=== PATIENT | male | born 1945 | race Caucasian/White ===

== ENCOUNTER 2017-10-05 14:41 | Inpatient (IN) | payer MEDICARE, OTHER ==
[2017-10-05 15:36] LABS: Hematocrit 38.5 % (42.0-52.0); Hemoglobin 12.9 gm/dL (13.5-18.0); Mean Cell Volume 88.5 fl (78-100); Mean Corpuscular Hemoglobin 29.7 pg (27-31); Mean Corpuscular Hgb Conc 33.5 g/dl (32-36); Mean Platelet Volume 11.8 fl (6.0-9.5); Neutrophil # 2.4 K/mm3 (1.3-6.0); Neutrophil % 50.2 % (42-75.0); Platelet Count 148 K/mm3 (150-450); Red Blood Count 4.35 M/mm3 (4.7-6.0); Red Cell Distribution Width 14.6 % (11.5-14.0); White Blood Count 4.8 K/mm3 (4.0-10.5)
[2017-10-05] MEDS ORDERED: AZITHROMYCIN 250 MG TABLET PO STA (15:42)
[2017-10-05] MEDS ORDERED: METHYLPREDNISOLONE SOD SUCC/PF 40 MG/ML VIAL IV ONE (15:56)
[2017-10-05 16:01] LABS: Albumin * 3.1 gm/dl (3.4-5.0); Anion Gap 9.6 mmol/L (6.8-13.8); BUN/Creatinine Ratio 19.7 (9.0-21.6); Bilirubin, Total 0.3 mg/dL (0.0-1.1); Ca. Corrected For Albumin 8.6 mg/dL (8.4-10.2); Calcium * 8.2 mg/dL (7.9-10.9); Carbon Dioxide 31.5 mmol/L (24-32.6); Potassium 3.1 mmol/L (3.4-4.6); Total Protein 6.7 gm/dL (6.2-8.2)
[2017-10-05] MEDS ORDERED: METHYLPREDNISOLONE SOD SUCC 80 MG in WATER FOR INJ.,BACTERIOSTATIC 0 ML IV ONE (16:15)
[2017-10-05] MEDS: ENOXAPARIN SODIUM 40 MG/0.4 ML SYRG SC SCH (16:18)
[2017-10-05] MEDS: cefTRIAXone SODIUM 1,000 MG in DEXTROSE 5 % IN WATER 50 ML IV SCH ×2 (16:19)
[2017-10-05] MEDS: NORMAL SALINE 1,000 ML IV PRN (16:24)
[2017-10-05] MEDS: INSULIN REGULAR, HUMAN 100 UNITS/ML VIAL SC SCH (16:38)
[2017-10-05] MEDS: ACETAMINOPHEN 325 MG TABLET PO PRN (17:15)
[2017-10-05] MEDS: ALBUTEROL SULFATE/IPRATROPIUM 3 ML NEBU IH SCH ×2 (17:53→18:04)
[2017-10-05] MEDS: GABAPENTIN 600 MG TABLET PO SCH (23:19)
--- NOTE | 2017-10-05 23:54 | PN ---
Progess Note - Interim Narrative: 10/05/17 23:54 See H/P from Christine Perez from clinic today. I saw Mr. Todd in the hospital and discussed case and plan with Christine Perez. Patient was seen two days ago and clinically diagnosed with pneumonia by bilateral crackles and fever in clinic. He had progressive shortness of breath, cough, fever, malaise, and felt like he was hit by a bus. He was tested for strep and influenza in clinic and both were negative at that time. As he clinically had pneumonia he was treated with Levaquin on 10/03/17. He reports continued symptoms and today he feels like he was hit by two buses. He has continued to have fever. On exam today he again has bilateral lower lobe rales. He has clinically failed outpatient treatment of pneumonia. Will admit to inpatient for treatment with IV rocephin and azithromycin. Will give nebulizer treatments of duoneb, use cornet and incentive spirometer. Will obtain CBC, CMP, and chest xray. Will retest for influenza as his symptoms are very suspicious of influenza and I wonder if his first test was a false negative. Due to failed outpatient treatment of pneumonia, patient clinically worsening will admit to inpatient. Anticipate >2 midnights for treatment and monitoring for response.
[2017-10-06] MEDS: ALBUTEROL SULFATE/IPRATROPIUM 3 ML NEBU IH SCH ×4 (00:06→18:13)
[2017-10-06 05:44] LABS: Hematocrit 40.2 % (42.0-52.0); Hemoglobin 13.4 gm/dL (13.5-18.0); Mean Cell Volume 88.9 fl (78-100); Mean Corpuscular Hemoglobin 29.6 pg (27-31); Mean Corpuscular Hgb Conc 33.3 g/dl (32-36); Mean Platelet Volume 12.2 fl (6.0-9.5); Neutrophil # 1.9 K/mm3 (1.3-6.0); Neutrophil % 63.1 % (42-75.0); Platelet Count 136 K/mm3 (150-450); Red Blood Count 4.52 M/mm3 (4.7-6.0); Red Cell Distribution Width 14.5 % (11.5-14.0)
[2017-10-06 06:09] LABS: Albumin * 3.1 gm/dl (3.4-5.0); Anion Gap 9.1 mmol/L (6.8-13.8); BUN/Creatinine Ratio 22.1 (9.0-21.6); Bilirubin, Total 0.3 mg/dL (0.0-1.1); Ca. Corrected For Albumin 8.5 mg/dL (8.4-10.2); Calcium * 8.1 mg/dL (7.9-10.9); Carbon Dioxide 32.4 mmol/L (24-32.6); Potassium 3.5 mmol/L (3.4-4.6); Total Protein 6.8 gm/dL (6.2-8.2)
[2017-10-06] MEDS ORDERED: GLIMEPIRIDE 4 MG TABLET PO SCH (07:00)
[2017-10-06] MEDS: INSULIN REGULAR, HUMAN 100 UNITS/ML VIAL SC SCH ×3 (07:18→16:45)
[2017-10-06] MEDS: LEVOTHYROXINE SODIUM 25 MCG TABLET PO SCH (07:18)
[2017-10-06] MEDS: NORMAL SALINE 1,000 ML IV PRN (07:19)
--- NOTE | 2017-10-06 07:21 | PN ---
Subjective - Date and Time Seen Date: 10/06/17 Time: 07:12 Subjective Narrative: Pt. continues with cough and SOB. Describes left sided chest pressure that worsens when he lays flat. Denies worsening with movement. States his BP's are typically good at home and he doesn't wear O2 at home. He has no other complaints this am. Objective - Review of Systems Generalized/Overall Review: Reports: No Symptoms Reported EENTM: Reports: No Symptoms Reported Respiratory: Reports: Cough, Shortness of Breath Cardiac: Reports: Chest Pain. Denies: Palpitations Abdominal: Reports: No Symptoms Reported Genitourinary Symptoms: Reports: No Symptoms Reported Musculoskeletal Complaints: Reports: No Symptoms Reported Neurological: Reports: No Symptoms Reported Skin: Reports: No Symptoms Reported Endocrine: Reports: No Symptoms Reported - Vitals Vitals: Last Vital Signs Temp 36.8 C 10/06/17 06:54 Pulse 62 10/06/17 06:54 Resp 18 10/06/17 06:54 BP 159/78 10/06/17 06:54 Pulse Ox 95 10/06/17 06:54 - Abnormal Lab Findings Abnormal Lab Findings: Abnormal Lab Results 10/05/17 10/05/17 10/06/17 Range/Units 15:33 15:33 05:30 WBC 3.0 L D (4.0-10.5) K/mm3 RBC 4.35 L 4.52 L (4.7-6.0) M/mm3 Hgb 12.9 L 13.4 L (13.5-18.0) gm/dL Hct 38.5 L 40.2 L (42.0-52.0) % RDW 14.6 H 14.5 H (11.5-14.0) % Plt Count 148 L 136 L (150-450) K/mm3 MPV 11.8 H 12.2 H (6.0-9.5) fl Monocytes % 19.9 H 10.9 H (0.0-9) % Lymphocytes # 1.4 L 0.8 L (1.5-3.5) k/mm3 Potassium 3.1 L D (3.4-4.6) mmol/L BUN 30 H D (6-23) mg/dL Creatinine 1.52 H D (0.4-1.4) mg/dL Est GFR (Non-Af Amer) 49 L D (60-130) mL/min BUN/Creatinine Ratio (9.0-21.6) Random Glucose 55 L (70-110) mg/dL Albumin 3.1 L (3.4-5.0) gm/dl 10/06/17 Range/Units 05:30 WBC (4.0-10.5) K/mm3 RBC (4.7-6.0) M/mm3 Hgb (13.5-18.0) gm/dL Hct (42.0-52.0) % RDW (11.5-14.0) % Plt Count (150-450) K/mm3 MPV (6.0-9.5) fl Monocytes % (0.0-9) % Lymphocytes # (1.5-3.5) k/mm3 Potassium (3.4-4.6) mmol/L BUN 27 H (6-23) mg/dL Creatinine (0.4-1.4) mg/dL Est GFR (Non-Af Amer) (60-130) mL/min BUN/Creatinine Ratio 22.1 H (9.0-21.6) Random Glucose 192 H D (70-110) mg/dL Albumin 3.1 L (3.4-5.0) gm/dl - EKG/Xray Findings EKG: NSR EKG read: Interp. by me - Exam Constitutional: Present: Alert, Oriented x3, Cooperative, Mild distress, Moderate distress, Obese ENT Exam: Present: hearing grossly normal Neck: Present: supple Respiratory: Present: respiratory distress - mild, rales - scattered denisse, but very focal left upper lobe. Cardiovascular/Chest: Present: regular rate, rhythm, no murmur Abdomen: Present: Normal bowel sounds, obese Skin Exam: Present: normal color Neurologic: Present: normal mood/affect, oriented x 3 Appearance: Present: appropriate appearance, appropriate insight, neat, impaired remote memory Eye contact: Present: cooperative, good eye contact, normal speech Thoughts: Present: normal thought pattern, no apparent hallucination Assessment/Plan - Problems/Diagnosis (1) Pneumonia Problem: Acute Qualifiers: Pneumonia type: due to unspecified organism Laterality: left Lung location: upper lobe of lung Qualified Code(s): J18.1 - Lobar pneumonia, unspecified organism Narrative: most likely cause of his CP. sx and PE findings still significant, but appears to be improving by report. will continue current rocephin and zithromax, nebs, cornet and short ambulation. (2) Diabetes Problem: Chronic Qualifiers: Diabetes mellitus type: type 2 Diabetes mellitus complication status: with hypoglycemia Diabetes mellitus complication detail: without coma Diabetes mellitus manager terminal insulin use: without skilled nursing use Qualified Code(s): E11.649 - Type 2 diabetes mellitus with hypoglycemia without coma Narrative: will hold his amaryl for now due to hypoglycemia. will do SSI, consistent carb diet. (3) Chest pain Problem: Acute Qualifiers: Chest pain type: precordial pain Qualified Code(s): R07.2 - Precordial pain Narrative: has tenderness over the costochondral border denisse along with focal rales TIFFANY, doubt that the CP is cardiac in nature, but given the elevated BP will check a troponin I this am. continue Telemetry for now. (4) Hypoxia Problem: Acute Narrative: will wean as tolerated off O2. Will need to be off O2 before discharge home or qualify for home O2. (5) Hypertension Problem: Chronic Qualifiers: Hypertension type: essential hypertension Qualified Code(s): I10 - Essential (primary) hypertension Narrative: BP's higher than normal. No changes yet. consider adding GABRIELA. continue coreg unchanged for now. (6) Discharge planning issues Problem: Acute Narrative: anticipate him being here at least 2 more days, unless he has a remarkable rapid improvement.
[2017-10-06] MEDS: ASPIRIN 81 MG TAB.CHEW PO SCH (08:41)
[2017-10-06] MEDS: CARVEDILOL 25 MG TABLET PO SCH ×2 (08:41→20:27)
[2017-10-06] MEDS: GABAPENTIN 300 MG CAPSULE PO SCH (08:41)
[2017-10-06] MEDS: POTASSIUM CHLORIDE 20 MEQ TABLET.SA PO SCH (08:41)
[2017-10-06] MEDS: predniSONE 20 MG TABLET PO SCH (08:41)
[2017-10-06] MEDS: AZITHROMYCIN 250 MG TABLET PO SCH (08:42)
[2017-10-06] MEDS: cefTRIAXone SODIUM 1,000 MG in DEXTROSE 5 % IN WATER 50 ML IV SCH ×2 (16:43)
[2017-10-06] MEDS: ENOXAPARIN SODIUM 40 MG/0.4 ML SYRG SC SCH (16:43)
[2017-10-06] MEDS ORDERED: SODIUM CHLORIDE 45 SPRAY BTL NS PRN (17:08)
[2017-10-06] MEDS: GABAPENTIN 600 MG TABLET PO SCH (20:27)
[2017-10-06] MEDS: SIMVASTATIN 20 MG TABLET PO SCH (20:28)
[2017-10-07] MEDS: ALBUTEROL SULFATE/IPRATROPIUM 3 ML NEBU IH SCH ×4 (00:15→18:19)
[2017-10-07] MEDS: ACETAMINOPHEN 325 MG TABLET PO PRN ×2 (01:16→16:13)
[2017-10-07] MEDS: LEVOTHYROXINE SODIUM 25 MCG TABLET PO SCH (06:42)
[2017-10-07] MEDS: INSULIN REGULAR, HUMAN 100 UNITS/ML VIAL SC SCH ×3 (06:45→17:04)
[2017-10-07] MEDS: AZITHROMYCIN 250 MG TABLET PO SCH (08:14)
[2017-10-07] MEDS: LISINOPRIL 5 MG TABLET PO SCH (08:15)
[2017-10-07] MEDS: CEFDINIR 300 MG CAPSULE PO SCH ×2 (08:15→20:58)
[2017-10-07] MEDS: ASPIRIN 81 MG TAB.CHEW PO SCH (08:15)
[2017-10-07] MEDS: GABAPENTIN 300 MG CAPSULE PO SCH (08:16)
[2017-10-07] MEDS: CARVEDILOL 25 MG TABLET PO SCH ×2 (08:16→20:55)
[2017-10-07] MEDS: predniSONE 20 MG TABLET PO SCH (08:16)
[2017-10-07] MEDS: POTASSIUM CHLORIDE 20 MEQ TABLET.SA PO SCH (08:17)
[2017-10-07] MEDS: HYDROcodone/CHLORPHEN P-STIREX 5 ML UDC PO PRN ×2 (08:26→21:02)
--- NOTE | 2017-10-07 12:34 | PN ---
Subjective - Date and Time Seen Date: 10/07/17 Time: 12:27 Subjective Narrative: Feeling better today. Still has some left sided CP but it is better today. Has been off O2 during the day, but did wear it last pm, more just in case his O2 might drop. He does complain of some CHUCKIE pain when he coughs. Does not radiate anywhere. No GI sx, pain is reproducible when pressed CHUCKIE. Objective - Review of Systems Generalized/Overall Review: Reports: Weakness. Denies: Chills, Fever EENTM: Reports: No Symptoms Reported Respiratory: Reports: Cough. Denies: Shortness of Breath Cardiac: Reports: Chest Pain. Denies: Palpitations Abdominal: Reports: Abdominal Pain. Denies: Nausea, Vomiting, Hematemesis, Constipation Genitourinary Symptoms: Denies: No Symptoms Reported Musculoskeletal Complaints: Reports: No Symptoms Reported Neurological: Reports: No Symptoms Reported Skin: Reports: No Symptoms Reported Endocrine: Reports: No Symptoms Reported - Vitals Vitals: Last Vital Signs Temp 36.6 C 10/07/17 10:27 Pulse 63 10/07/17 10:27 Resp 18 10/07/17 10:27 BP 143/56 10/07/17 10:27 Pulse Ox 93 10/07/17 10:27 - Exam Constitutional: Present: Alert, Oriented x3, Cooperative, Mild distress, Obese ENT Exam: Present: hearing grossly normal Neck: Present: supple Respiratory: Present: no respiratory distress, no accessory muscle use, rales - TIFFANY are coarse and focal, fine rales and wheezes scattered throughout. Cardiovascular/Chest: Present: regular rate, rhythm, no murmur Abdomen: Present: Normal bowel sounds, soft, nondistended, tender - CHUCKIE and LUQ and RUQ. appears to be muscular in nature. no pulsatile mass concerning for AAA., guarding. Absent: firm, mass palpable Extremity: Present: normal range of motion, non-tender, normal inspection Skin Exam: Present: normal color Neurologic: Present: normal mood/affect, oriented x 3 Appearance: Present: appropriate appearance, appropriate insight, neat, impaired recent memory Eye contact: Present: cooperative, good eye contact, normal speech Thoughts: Present: normal thought pattern, no apparent hallucination Assessment/Plan - Problems/Diagnosis (1) Pneumonia Problem: Acute Qualifiers: Pneumonia type: due to unspecified organism Laterality: left Lung location: upper lobe of lung Qualified Code(s): J18.1 - Lobar pneumonia, unspecified organism Narrative: improving, change to po cefdinir and continue azithromycin. (2) Diabetes Problem: Chronic Qualifiers: Diabetes mellitus type: type 2 Diabetes mellitus complication status: with hypoglycemia Diabetes mellitus complication detail: without coma Diabetes mellitus group home insulin use: without lobsterman use Qualified Code(s): E11.649 - Type 2 diabetes mellitus with hypoglycemia without coma Narrative: sugars remain good. stay off the amaryl for now. continue accuchecks and SSI. (3) Chest pain Problem: Acute Qualifiers: Chest pain type: precordial pain Qualified Code(s): R07.2 - Precordial pain Narrative: improving. Trop I negative. still believe this to be TIFFANY pneumonia assoc. (4) Hypoxia Problem: Acute (5) Hypertension Problem: Chronic Qualifiers: Hypertension type: essential hypertension Qualified Code(s): I10 - Essential (primary) hypertension Narrative: BP's remaining elevated. started lisinopril 5mg daily. will follow BP's. probably d/c home on this additional med. (6) Discharge planning issues Problem: Acute Narrative: hopefully home in the am if continues to be ok on just po meds.
[2017-10-07] MEDS: ENOXAPARIN SODIUM 40 MG/0.4 ML SYRG SC SCH (16:13)
[2017-10-07] MEDS: GABAPENTIN 600 MG TABLET PO SCH (20:57)
[2017-10-07] MEDS: SIMVASTATIN 20 MG TABLET PO SCH (20:59)
[2017-10-08] MEDS: ALBUTEROL SULFATE/IPRATROPIUM 3 ML NEBU IH SCH ×3 (00:27→13:28)
[2017-10-08 05:46] LABS: Hematocrit 38.5 % (42.0-52.0); Hemoglobin 12.8 gm/dL (13.5-18.0); Mean Cell Volume 89.1 fl (78-100); Mean Corpuscular Hemoglobin 29.6 pg (27-31); Mean Corpuscular Hgb Conc 33.2 g/dl (32-36); Mean Platelet Volume 12.5 fl (6.0-9.5); Neutrophil # 2.7 K/mm3 (1.3-6.0); Neutrophil % 56.8 % (42-75.0); Platelet Count 122 K/mm3 (150-450); Red Blood Count 4.32 M/mm3 (4.7-6.0); Red Cell Distribution Width 13.9 % (11.5-14.0); White Blood Count 4.8 K/mm3 (4.0-10.5)
[2017-10-08] MEDS: INSULIN REGULAR, HUMAN 100 UNITS/ML VIAL SC SCH ×2 (06:44→11:43)
[2017-10-08] MEDS: LEVOTHYROXINE SODIUM 25 MCG TABLET PO SCH (07:17)
[2017-10-08] MEDS: POTASSIUM CHLORIDE 20 MEQ TABLET.SA PO SCH (08:55)
[2017-10-08] MEDS: CARVEDILOL 25 MG TABLET PO SCH (08:55)
[2017-10-08] MEDS: ASPIRIN 81 MG TAB.CHEW PO SCH (08:55)
[2017-10-08] MEDS: predniSONE 20 MG TABLET PO SCH (08:56)
[2017-10-08] MEDS: LISINOPRIL 5 MG TABLET PO SCH (08:56)
[2017-10-08] MEDS: CEFDINIR 300 MG CAPSULE PO SCH (08:56)
[2017-10-08] MEDS: AZITHROMYCIN 250 MG TABLET PO SCH (08:56)
[2017-10-08] MEDS: GABAPENTIN 300 MG CAPSULE PO SCH (08:56)
[2017-10-08] MEDS: HYDROcodone/CHLORPHEN P-STIREX 5 ML UDC PO PRN (10:16)
[2017-10-08] MEDS ORDERED: FUROSEMIDE 10 MG/ML VIAL IV ONE (12:44)
[2017-10-08 15:07] VITALS: BP 132/65
[2017-10-08 16:03] LABS: ALT 39 U/L (19-67); AST 23 U/L (0-48); Albumin * 3.3 gm/dl (3.4-5.0); Alkaline Phosphatase * 58 U/L (50-170); Anion Gap 11.5 mmol/L (6.8-13.8); BUN/Creatinine Ratio 17.3 (9.0-21.6); Bilirubin, Total 0.3 mg/dL (0.0-1.1); Blood Urea Nitrogen 19 mg/dL (6-23); Ca. Corrected For Albumin 8.5 mg/dL (8.4-10.2); Calcium * 8.3 mg/dL (7.9-10.9); Carbon Dioxide 30.6 mmol/L (24-32.6); Chloride 99 mmol/L (97-106); Glucose * 217 mg/dL (70-110); Potassium 4.1 mmol/L (3.4-4.6); Sodium 137 mmol/L (132-142); TSH * 1.393 uIU/mL (0.358-3.74); Total Protein 6.9 gm/dL (6.2-8.2)
[2017-10-08 16:06] LABS: Troponin I Less than 0.017 ng/ml (0.00-0.10)
--- NOTE | 2017-10-08 17:01 | DS ---
(1) Pneumonia Problem: Acute Qualifiers: Pneumonia type: due to unspecified organism Laterality: left Lung location: upper lobe of lung Qualified Code(s): J18.1 - Lobar pneumonia, unspecified organism (2) Atrial fibrillation Problem: Acute Qualifiers: Atrial fibrillation type: paroxysmal Qualified Code(s): I48.0 - Paroxysmal atrial fibrillation (3) Hypertension Problem: Chronic Qualifiers: Hypertension type: essential hypertension Qualified Code(s): I10 - Essential (primary) hypertension Description of Stay: Maxime is a 71 yo male that was admitted for failed outpatient treatment (Levaquin) of pneumonia. He was admitted and placed on rocephin/azithromycin. He was treated with breathing treatments, cornet, and steroids. He gradually improved but was found while monitoring on telemetry to have paroxysmal atrial fibrillation. He was rate controlled without medications and started on coumadin for anticoagulation for stroke prophylaxis. Gradually he felt better in regards to the pneumonia and discharged to home. He will follow up with cardiology for the atrial fibrillation and will see me in a week for hospital follow up. Procedures Performed: none Discharge Disposition: Home self care Disposition: Home self-care Condition: Good Discharge Activity: Activity as tolerated Discharge Diet: Low salt Referrals: Gagandeep Soliz DO [Primary Care Provider] - One Week Tung Scott MD [Associate] - (Next available, new atrial fibrillation) Christine Soliz [Pharmacy] - (Next available, [facility]mad[facility]) Problem Oriented Discharge Instructions to Patient/Family: Warfarin: What You Need to Know, Warfarin Coagulopathy, Atrial Fibrillation, [id number], Community-Acquired Pneumonia, Adult, [id number] Additional Patient Instructions (free text): LAB - Prothrombin Time in 3 days Echocardiogram 10/09 at 2:00 please check in at out patient at 1:45 [facility] will call you tomorrow with follow up appointments. Prescriptions (Any new or edited meds): Azithromycin [Zithromax] 250 mg PO DAILY #2 tablet Cefdinir [Omnicef] 300 mg PO BID #20 capsule predniSONE [Prednisone] 40 mg PO DAILY #25 tablet Warfarin Sodium [Coumadin] 5 mg PO DAILY #30 tablet Complete Home Medications List: Complete Home Medication List: Carvedilol [Coreg] 50 mg PO BID 07/09/12 Fenofibrate [Lofibra] 54 mg PO DAILY 07/09/12 Furosemide [Lasix] 40 mg PO DAILY 07/09/12 Levothyroxine Sodium [Levothroid] 25 mcg PO DAILY 07/09/12 Potassium Chloride [Klor-Con M20] 20 meq PO DAILY 07/09/12 Simvastatin 20 mg PO DAILY 07/09/12 Gabapentin [Neurontin] 300 mg PO QAM 09/19/12 Clonidine HCl 0.1 mg PO BID 04/16/13 Glimepiride [Amaryl] 4 mg PO DAILY@0700 04/16/13 Lisinopril/Hydrochlorothiazide [Lisinopril-Hctz 20-12.5 mg Tab] 3 each PO DAILY 04/16/13 metFORMIN HCL [Glucophage] 500 mg PO BIDWM 04/16/13 Gabapentin [Neurontin] 600 mg PO HS 05/21/14 hydrALAZINE HCL [Hydralazine HCl] 50 mg PO BID 10/05/17 Azithromycin [Zithromax] 250 mg PO DAILY #2 tablet 10/08/17 Cefdinir [Omnicef] 300 mg PO BID #20 capsule 10/08/17 Warfarin Sodium [Coumadin] 5 mg PO DAILY #30 tablet 10/08/17 predniSONE [Prednisone] 40 mg PO DAILY #25 tablet 10/08/17 Amb Orders for Discharge: Prothrombin Time Time Frame: 3 Days, Facility: [facility], Location: Laboratory US Echocardiogram Complete * Time Frame: 3 Days, Facility: [facility], Location: Radiology
[2017-10-08] MEDS: ENOXAPARIN SODIUM 40 MG/0.4 ML SYRG SC SCH (17:43)
== END 2017-10-08 17:55 | disposition home or self-care (01) | DRG 195 ==
LOC: INTOOBSV 14:41 → MS 14:41 → OBSVTOIN 15:42 → MS 15:42
PROVIDERS: ADMIT Family Medicine; ATTEND Family Medicine
DX: J18.1 Lobar pneumonia, unspecified organism (principal); I48.0 Paroxysmal atrial fibrillation; I10 Essential (primary) hypertension; E78.5 Hyperlipidemia, unspecified; E11.9 Type 2 diabetes mellitus without complications; I65.29 Occlusion and stenosis of unspecified carotid artery; Z79.82 Long term (current) use of aspirin
CPT/HCPCS: 36415; 71046; 80053; 84443; 84484; 85025; 87040; 87070; 87077; 87186; 87400; 93005; 94640; G0379

== ENCOUNTER 2019-12-08 10:34 | Observation (INO) ==
[2019-12-08] MEDS ORDERED: FUROSEMIDE 10 MG/ML VIAL IV SCH (11:45)
[2019-12-08 12:02] LABS: Hematocrit 36.3 % (42.0-52.0); Hemoglobin 11.7 gm/dL (13.5-18.0); Mean Corpuscular Hemoglobin 29.3 pg (27-31); Mean Corpuscular Hgb Conc 32.2 g/dl (32-36); Neutrophil # 4.1 K/mm3 (1.3-6.0); Neutrophil % 68.3 % (42-75.0); Platelet Count 117 K/mm3 (150-450); Red Blood Count 3.99 M/mm3 (4.7-6.0); Red Cell Distribution Width 16.3 % (11.5-14.0)
[2019-12-08 12:29] LABS: Albumin * 3.4 gm/dl (3.4-5.0); Anion Gap 13.3 mmol/L (6.8-13.8); Bilirubin, Total 0.6 mg/dL (0.0-1.1); Calcium * 8.8 mg/dL (7.9-10.9); Carbon Dioxide 26.4 mmol/L (24-32.6); Potassium 3.7 mmol/L (3.4-4.6); Total Protein 7.3 gm/dL (6.2-8.2)
--- NOTE | 2019-12-08 13:04 | HP ---
Chief Complaint - Chief Complaint Date of Service: 12/08/19 Time of Service: 12:18 Chief Complaint: Shortness of breath History of Present Illness: Maxime is a 74 yo male with history of atrial fibrillation, SUJATA, and chronic diastolic CHF. He reports for the past week he has been feeling more short of breath, especially when laying down. He called in wanting to know if his CPAP machine could be adjusted. Respiratory supplier was contacted to review his CPAP data and his AHI is near 1 with very few breakthrough apneas. Based on the data his sleep apnea was under good control. He was called and notified of these results but he reports he continues to have difficulty with breathing at night and will rip his mask off. He was ordered to come in and have a chest xray. He followed up in clinic after his chest xray as he was noted to be significantly short of breath in radiology. He is visually short of breath with respirations in the 30s and he appears uncomfortable due to air hunger. His oxygen saturation is 96% on room air. He reports he has been less active since he has been staying at home due to COVID-19. He also reports that he has been forgetting to take his Lasix 80mg. He admits his legs are more swollen than usual. He reports when he does take his lasix it is still working. Medical History (Last Reviewed 12/08/19 @ 12:10 by Aziza Dallas RN) Obstructive sleep apnea (Chronic) Onset Date: 09/2017 Mild obstructive sleep apnea. AHI of 7 events per hour. CPAP setting 8cm/H2O. Atrial fibrillation (Chronic) Onset Date: 10/09/17 Bunion (Chronic) Onset Date: 07/29/12 Carotid arterial disease (Chronic) Onset Date: Unknown Diabetes mellitus, type II (Chronic) Onset Date: Unknown Onychomycosis (Acute) Onset Date: 2011 Foot ulcer (Resolved) Onset Date: Unknown Diabetes (Chronic) Onset Date: Unknown Diabetic eye exam Onset Date: 08/09/18 Dr. Ezra Garcia, [place]. * Mild background diabetic retinopathy noted in both eyes. Diabetic retinopathy Onset Date: 08/09/18 Influenza vaccination declined Onset Date: ~06/04/18 Will get later this month Pericardial effusion Onset Date: Unknown Heart failure Onset Date: Unknown Hyperlipidemia Onset Date: Unknown Hypertension Onset Date: Unknown Metabolic disorder Onset Date: Unknown Peripheral neuropathy Onset Date: 2011 Carpal tunnel syndrome of right wrist Onset Date: Unknown History of cataract Onset Date: Unknown bilateral Pneumonia Onset Date: Unknown Asbestos exposure Onset Date: Unknown Surgical History: Surgical History (Last Reviewed 12/08/19 @ 12:10 by Aziza Dallas RN) H/O arthroscopic knee surgery Onset Date: Unknown bilateral, unsure of year History of arthroplasty of knee Onset Date: 06/01/14 left History of carpal tunnel release Onset Date: Unknown right History of cataract removal with insertion of prosthetic lens Onset Date: Unknown bilateral History of colonoscopy Onset Date: 2010 Normal Hx of repair of rotator cuff Onset Date: Unknown bilateral Family History: Family History (Last Reviewed 12/08/19 @ 12:10 by Aziza Dallas RN) Father Myocardial infarction, Onset Age: 81 Hypertension Mother Hypertension CVA (cerebral vascular accident), Onset Age: 71 Social History: (Last Reviewed 12/08/19 @ 12:10 by Aziza Dallas RN) Social History: adopted: No senior living: No Marital status: household members: spouse number of children: 2 number of grandchildren: 3 current occupational status: retired current occupation: retired Highest education level completed: high school graduate Service: Yes Service comment: [employer] branch: [employer] assignments: [employer], deployed known or potential exposure: other details: possible agent orange exposure Tobacco: Smoking Status: Former smoker Tobacco: How many years used: 22 how long ago did patient quit smoking: age 33 Alcohol: alcohol intake: never Substance Use: substance use type: does not use Dietary Habits: caffeine: Yes caffeine comment: very little Type: tea, carbonated beverages Exercise: frequency: does not exercise Review Of Systems (GEN) - Review of Systems Generalized/Overall Review: Present: Weakness, Fatigue. Absent: Chills, Fever EENTM: Present: No Symptoms Reported Respiratory: Present: Shortness of Breath. Absent: Cough Cardiac: Present: Edema. Absent: Chest Pain, Palpitations, Syncope Abdominal: Absent: Nausea, Vomiting Genitourinary: Absent: Burning, Itching Musculoskeletal: Absent: Joint Pain, Back Pain Neurological: Absent: Headache, Anxiety Skin: Absent: Dryness, Lesions Immunizations: IMMUNIZATION HX Immunizations Up to Date Yes History of Influenza Vaccine Yes Hx Pneumococcal Vaccination Yes Allergies/Adverse Reactions: Allergies Allergy/AdvReac Type Severity Reaction Status Date / Time No Known Allergies Allergy Verified 12/08/19 12:10 Home Medications: HOME MEDICATIONS warfarin 5 mg tablet 5 mg PO SUTUWETHFRSA tab 03/27/18 [Last Taken Unknown] blood-glucose meter See Dose Instructions .ROUTE .MEDSUPPLY #1 ea 09/18/18 [Last Taken Unknown] lancets See Dose Instructions .ROUTE .MEDSUPPLY #100 ea 09/23/18 [Last Taken Unknown] CPAP Supplies (Foam Filter, Headgear, Chin Strap, Water Chamber) 0 .ROUTE .MEDSUPPLY #1 ea 11/11/18 [Last Taken Unknown] CPAP Supplies (Full Face Cushion/Pillows, Disposable Filters) 0 .ROUTE .MEDSUPPLY #6 ea 11/11/18 [Last Taken Unknown] CPAP Supplies (Full Face Mask, Tubing) 0 .ROUTE .MEDSUPPLY #1 ea 11/11/18 [Last Taken Unknown] furosemide 40 mg tablet 80 mg PO BID tab 01/02/19 [Last Taken Unknown] Potassium Chloride [Klor-Con M20] 20 meq PO BID 01/21/19 [Last Taken Unknown] albuterol sulfate 90 mcg/actuation aerosol inhaler 2 inh IH Q6H PRN #8.5 g 02/06/19 [Last Taken Unknown] Durable Medical Equipment See Dose Instructions .ROUTE .MEDSUPPLY #1 ea 02/26/19 [Last Taken Unknown] blood sugar diagnostic See Dose Instructions .ROUTE .MEDSUPPLY #100 ea 07/28/19 [Last Taken Unknown] glimepiride 4 mg tablet 4 mg PO DAILY #30 tab 07/28/19 [Last Taken Unknown] carvedilol 25 mg tablet 50 mg PO BID #360 tab 08/19/19 [Last Taken Unknown] clonidine HCl 0.1 mg tablet 0.1 mg PO BID #180 tab 08/19/19 [Last Taken Unknown] fenofibrate 54 mg tablet 54 mg PO DAILY #30 tab 11/13/19 [Last Taken Unknown] hydralazine 50 mg tablet 50 mg PO BID #60 tab 11/13/19 [Last Taken Unknown] levothyroxine 25 mcg tablet 25 mcg PO DAILY #30 tab 11/13/19 [Last Taken Unknown] metformin 500 mg tablet 500 mg PO BIDWM #60 tab 11/13/19 [Last Taken Unknown] simvastatin 20 mg tablet 20 mg PO HS #30 tab 11/13/19 [Last Taken Unknown] Gabapentin 400 mg PO DAILY 12/08/19 [Last Taken Unknown] Gabapentin 800 mg PO HS 12/08/19 [Last Taken Unknown] Lisinopril/Hydrochlorothiazide [Lisinopril-Hctz 20-12.5 mg Tab] 1 ea PO HS 12/08/19 [Last Taken Unknown] Lisinopril/Hydrochlorothiazide [Lisinopril-Hctz 20-12.5 mg Tab] 2 ea PO DAILY 12/08/19 [Last Taken Unknown] Warfarin Sodium 2.5 mg PO MO 12/08/19 [Last Taken Unknown] Exam - Exam Vital Signs: Vital Signs - Last Taken Temp 36.7 C 12/08/19 11:42 Pulse 63 12/08/19 11:42 Resp 24 H 12/08/19 11:42 BP 121/63 12/08/19 11:42 Pulse Ox 96 12/08/19 11:42 Constitutional: Present: Alert, Oriented x3, Cooperative ENT Exam: Present: hearing grossly normal Eye Exam: bilateral eye: normal inspection Respiratory: Present: respiratory distress - tachypnea and increased work of breathing, crackles Cardiovascular/Chest: Present: no murmur, irregularly irregular, edema - 3+ Abdomen: Present: Normal bowel sounds, soft, nontender, nondistended, no rebound tenderness Skin Exam: Present: normal color, warm/dry, no cyanosis Appearance: Present: appropriate appearance, appropriate insight Eye contact: Present: cooperative, good eye contact, normal speech Thoughts: Present: normal thought pattern, no apparent hallucination Diagnostic Studies: Abnormal Lab Results 12/08/19 Range/Units 11:50 RBC 3.99 L (4.7-6.0) M/mm3 Hgb 11.7 L (13.5-18.0) gm/dL Hct 36.3 L (42.0-52.0) % RDW 16.3 H (11.5-14.0) % Plt Count 117 L (150-450) K/mm3 MPV 12.0 H (8-11.3) fl Lymphocytes % 18.4 L (20-51) % Monocytes % 9.9 H (0.0-9) % Lymphocytes # 1.10 L (1.5-3.5) k/mm3 Laboratory Results WBC 6.0 K/mm3 (4.0-10.5) 12/08/19 11:50 RBC 3.99 M/mm3 (4.7-6.0) L 12/08/19 11:50 Hgb 11.7 gm/dL (13.5-18.0) L 12/08/19 11:50 Hct 36.3 % (42.0-52.0) L 12/08/19 11:50 MCV 91.0 fl (78-100) 12/08/19 11:50 MCH 29.3 pg (27-31) 12/08/19 11:50 MCHC 32.2 g/dl (32-36) 12/08/19 11:50 RDW 16.3 % (11.5-14.0) H 12/08/19 11:50 Plt Count 117 K/mm3 (150-450) L 12/08/19 11:50 MPV 12.0 fl (8-11.3) H 12/08/19 11:50 Immature Gran % (Auto) 0.20 % (0.001-0.429) 12/08/19 11:50 Immature Gran # (Auto) 0.01 K/mm3 (0.000-0.0310) 12/08/19 11:50 Neutrophils % 68.3 % (42-75.0) 12/08/19 11:50 Lymphocytes % 18.4 % (20-51) L 12/08/19 11:50 Monocytes % 9.9 % (0.0-9) H 12/08/19 11:50 Eosinophils % 2.7 % (0.0-3.0) 12/08/19 11:50 Basophils % 0.5 % (0.0-1.0) 12/08/19 11:50 Nucleated RBC % 0.0 k/mm3 (0-1) 12/08/19 11:50 Neutrophils # 4.1 K/mm3 (1.3-6.0) 12/08/19 11:50 Lymphocytes # 1.10 k/mm3 (1.5-3.5) L 12/08/19 11:50 Monocytes # 0.6 k/mm3 (0.0-1.0) 12/08/19 11:50 Eosinophils # 0.2 k/mm3 (0.0-0.7) 12/08/19 11:50 Absolute Basophils 0.0 k/mm3 (0.0-0.1) 12/08/19 11:50 Assessment/Plan - Narrative Narrative: Maixme is a 74 yo male with: 1) Acute on Chronic Congestive Heart Failure - Chest xray with pulmonary congestion and tachypnea without hypoxia. Will admit to observation and give IV lasix 80mg q6hr. Will monitor urine output and renal function 2) Obstructive Sleep Apnea - CPAP 3) Atrial Fibrillation - Continue home medication. 4) Social - Anticipate diuresis over home and discharge to home tomorrow. - Assessment/Plan (1) Acute on chronic diastolic CHF (congestive heart failure) Problem: Acute (2) Obstructive sleep apnea Problem: Chronic (3) Atrial fibrillation Problem: Chronic Qualifiers: Atrial fibrillation type: permanent Qualified Code(s): I48.21 - Permanent atrial fibrillation
[2019-12-08] MEDS: ACETAMINOPHEN 500 MG TABLET PO PRN (13:51)
[2019-12-08 13:52] LABS: Prothrombin Time (Patient) 26.6 Seconds (9.1-10.7)
[2019-12-08 13:55] LABS: INR 2.8 INR (0.92-1.08)
[2019-12-08] MEDS: metFORMIN HCL 500 MG TABLET PO SCH (16:21)
[2019-12-08] MEDS: POTASSIUM CHLORIDE 20 MEQ TABLET.SA PO SCH (16:21)
[2019-12-08] MEDS ORDERED: WARFARIN SODIUM 2.5 MG TABLET PO SCH (17:00)
[2019-12-08] MEDS: FUROSEMIDE 10 MG/ML VIAL IV SCH (20:47)
[2019-12-08] MEDS: CLONIDINE HCL 0.1 MG TABLET PO SCH (20:54)
[2019-12-08] MEDS: hydrALAZINE HCL 50 MG TABLET PO SCH (20:54)
[2019-12-08] MEDS: CARVEDILOL 25 MG TABLET PO SCH (20:55)
[2019-12-08] MEDS ORDERED: HYDROCHLOROTHIAZIDE 12.5 MG CAPSULE PO SCH (21:00)
[2019-12-08] MEDS ORDERED: GABAPENTIN 400 MG CAPSULE PO SCH (21:00)
[2019-12-08] MEDS ORDERED: LISINOPRIL 20 MG TABLET PO SCH (21:00)
[2019-12-08] MEDS ORDERED: SIMVASTATIN 20 MG TABLET PO SCH (21:00)
[2019-12-09] MEDS: FUROSEMIDE 10 MG/ML VIAL IV SCH ×2 (02:41→08:25)
[2019-12-09] MEDS: ACETAMINOPHEN 500 MG TABLET PO PRN (06:51)
[2019-12-09] MEDS ORDERED: LEVOTHYROXINE SODIUM 25 MCG TABLET PO SCH (07:00)
[2019-12-09] MEDS: CLONIDINE HCL 0.1 MG TABLET PO SCH (08:28)
[2019-12-09] MEDS: CARVEDILOL 25 MG TABLET PO SCH (08:29)
[2019-12-09] MEDS: metFORMIN HCL 500 MG TABLET PO SCH (08:29)
[2019-12-09] MEDS: hydrALAZINE HCL 50 MG TABLET PO SCH (08:30)
[2019-12-09] MEDS: POTASSIUM CHLORIDE 20 MEQ TABLET.SA PO SCH (08:31)
[2019-12-09 08:46] LABS: Prothrombin Time (Patient) 30.3 Seconds (9.1-10.7)
[2019-12-09 08:48] LABS: INR 3.2 INR (0.92-1.08)
[2019-12-09 08:52] LABS: Albumin * 3.5 gm/dl (3.4-5.0); Anion Gap 11.6 mmol/L (6.8-13.8); BUN/Creatinine Ratio 18.2 (9.0-21.6); Bilirubin, Total 0.7 mg/dL (0.0-1.1); Ca. Corrected For Albumin 8.6 mg/dL (8.4-10.2); Calcium * 8.5 mg/dL (7.9-10.9); Carbon Dioxide 31.9 mmol/L (24-32.6); Potassium 3.5 mmol/L (3.4-4.6); Total Protein 7.7 gm/dL (6.2-8.2)
[2019-12-09] MEDS ORDERED: LISINOPRIL 40 MG TABLET PO SCH (09:00)
[2019-12-09] MEDS ORDERED: GABAPENTIN 400 MG CAPSULE PO SCH ×2 (09:00→17:00)
[2019-12-09] MEDS ORDERED: FENOFIBRATE,MICRONIZED 67 MG CAPSULE PO SCH (09:00)
[2019-12-09] MEDS ORDERED: HYDROCHLOROTHIAZIDE 25 MG TABLET PO SCH (09:00)
[2019-12-09] MEDS ORDERED: GLIMEPIRIDE 4 MG TABLET PO SCH (09:00)
--- NOTE | 2019-12-09 13:09 | DS ---
(1) Acute on chronic diastolic CHF (congestive heart failure) Problem: Resolved (2) Obstructive sleep apnea Problem: Chronic (3) Atrial fibrillation Problem: Chronic Qualifiers: Atrial fibrillation type: permanent Qualified Code(s): I48.21 - Permanent atrial fibrillation Date of Discharge:: 12/09/19 Hospital Course: Maxime is a 74 yo male admitted with acute on chronic diastolic CHF due to decreased ambulation and missing several lasix doses. He was admitted to observation and had IV lasix 80mg q6hr. He diuresed >5lbs and his shortness of breath significantly improved. He had a slight bump in his creatinine from 1.3 to 1.5, electrolytes were normal. He will be discharged to home today. He was educated to remain active and make sure to take his lasix daily. Follow up in 1- 2 weeks. Procedures Performed: none Results and Findings: Lab Pending Results 12/08/19 11:50: WBC 6.0, RBC 3.99 L, Hgb 11.7 L, Hct 36.3 L, MCV 91.0, MCH 29.3, MCHC 32.2, RDW 16.3 H, Plt Count 117 L, MPV 12.0 H, Immature Gran % (Auto) 0.20, Immature Gran # (Auto) 0.01, Neutrophils % 68.3, Lymphocytes % 18.4 L, Monocytes % 9.9 H, Eosinophils % 2.7, Basophils % 0.5, Nucleated RBC % 0.0, Neutrophils # 4.1, Lymphocytes # 1.10 L, Monocytes # 0.6, Eosinophils # 0.2, Absolute Basophils 0.0 12/08/19 11:50: Sodium 143 H, Plasma Sodium 143 H, Potassium 3.7, Chloride 107 H, Carbon Dioxide 26.4, Anion Gap 13.3, BUN 26 H, Creatinine 1.30, Est GFR (Non- Af Amer) 58 L, BUN/Creatinine Ratio 20.0, Random Glucose 86, Calcium 8.8, Calcium Adj for Albumin 9.0, Total Bilirubin 0.6, AST 15, ALT 13 L, Alkaline Phosphatase 80, B-Natriuretic Peptide 1449 H, Total Protein 7.3, Albumin 3.4 12/08/19 11:50: PT 26.6 H, INR (Anticoag Therapy) 2.80 H 04/14/20 08:33: PT 30.3 H, INR (Anticoag Therapy) 3.20 H 12/09/19 08:33: Sodium 142, Plasma Sodium 143 H, Potassium 3.5, Chloride 102, Carbon Dioxide 31.9, Anion Gap 11.6, BUN 29 H, Creatinine 1.59 H, Est GFR (Non- Af Amer) 46 L D, BUN/Creatinine Ratio 18.2, Random Glucose 179 H D, Calcium 8.5, Calcium Adj for Albumin 8.6, Total Bilirubin 0.7, AST 15, ALT 17 L, Alkaline Phosphatase 86, Total Protein 7.7, Albumin 3.5 Discharge Location: Home Disposition: Home self-care Condition: Good Discharge Activity: Activity as tolerated Discharge Diet: Low salt Referrals: Gagandeep Soliz DO [Primary Care Provider] - One Week Problem Oriented Discharge Instructions to Patient/Family: CHF Patient Instructions Complete Home Medications List: Complete Home Medication List: warfarin 5 mg tablet 5 mg PO SUTUWETHFRSA tab 03/27/18 blood-glucose meter See Dose Instructions .ROUTE .MEDSUPPLY #1 ea 09/18/18 lancets See Dose Instructions .ROUTE .MEDSUPPLY #100 ea 09/23/18 CPAP Supplies (Foam Filter, Headgear, Chin Strap, Water Chamber) 0 .ROUTE .MEDSUPPLY #1 ea 11/11/18 CPAP Supplies (Full Face Cushion/Pillows, Disposable Filters) 0 .ROUTE .MEDSUPPLY #6 ea 11/11/18 CPAP Supplies (Full Face Mask, Tubing) 0 .ROUTE .MEDSUPPLY #1 ea 11/11/18 furosemide 40 mg tablet 80 mg PO BID tab 01/02/19 Potassium Chloride [Klor-Con M20] 20 meq PO BID 01/21/19 albuterol sulfate 90 mcg/actuation aerosol inhaler 2 inh IH Q6H PRN #8.5 g 02/06/19 Durable Medical Equipment See Dose Instructions .ROUTE .MEDSUPPLY #1 ea 02/26/19 blood sugar diagnostic See Dose Instructions .ROUTE .MEDSUPPLY #100 ea 07/28/19 glimepiride 4 mg tablet 4 mg PO DAILY #30 tab 07/28/19 carvedilol 25 mg tablet 50 mg PO BID #360 tab 08/19/19 clonidine HCl 0.1 mg tablet 0.1 mg PO BID #180 tab 08/19/19 fenofibrate 54 mg tablet 54 mg PO DAILY #30 tab 11/13/19 hydralazine 50 mg tablet 50 mg PO BID #60 tab 11/13/19 levothyroxine 25 mcg tablet 25 mcg PO DAILY #30 tab 11/13/19 metformin 500 mg tablet 500 mg PO BIDWM #60 tab 11/13/19 simvastatin 20 mg tablet 20 mg PO HS #30 tab 11/13/19 Gabapentin 400 mg PO DAILY 12/08/19 Gabapentin 800 mg PO HS 12/08/19 Lisinopril/Hydrochlorothiazide [Lisinopril-Hctz 20-12.5 mg Tab] 1 ea PO HS 12/08/19 Lisinopril/Hydrochlorothiazide [Lisinopril-Hctz 20-12.5 mg Tab] 2 ea PO DAILY 12/08/19 Warfarin Sodium 2.5 mg PO MO 12/08/19
[2019-12-09 14:13] VITALS: BP 119/40
[2019-12-09] MEDS ORDERED: WARFARIN SODIUM 5 MG TABLET PO SCH (17:00)
== END 2019-12-09 14:00 | disposition home or self-care (01) ==
LOC: RAD 10:34 → MS 10:34
PROVIDERS: ADMIT Family Medicine; ATTEND Family Medicine
DX: G47.33 Obstructive sleep apnea (adult) (pediatric); Z79.01 Long term (current) use of anticoagulants; E11.9 Type 2 diabetes mellitus without complications; I48.21 Permanent atrial fibrillation; I50.33 Acute on chronic diastolic (congestive) heart failure; I11.0 Hypertensive heart disease with heart failure; E78.5 Hyperlipidemia, unspecified
CPT/HCPCS: 36415; 71020; 71046; 80053; 83519; 83880; 85025; 85610; 93005; 94660; 96374; 96376; G0378

== ENCOUNTER 2020-04-05 08:22 | Inpatient (IN) ==
[~2020-04-05 08:22] MED LIST: MORPHINE SULFATE 15 MG TABLET.SA PO PRN; ROPIVACAINE HCL/PF 100 MG, EPINEPHrine 0.2 MG, KETOROLAC TROMETHAMINE 30 MG in NORMAL S... IJ PRN; TRANEXAMIC ACID 1,000 MG in NORMAL SALINE 100 ML IV PRN; ceFAZolin SODIUM 1 GM VIAL IV PRN
[2020-04-05] MEDS ORDERED: BUPIVACAINE HCL/EPINEPHRINE 50 ML VIAL ONE (08:58)
[2020-04-05] MEDS ORDERED: PROPOFOL VIAL IV ONE (08:58)
[2020-04-05] MEDS ORDERED: MIDAZOLAM HCL/PF 5 MG/ML VIAL ONE (08:58)
[2020-04-05] MEDS ORDERED: ceFAZolin SODIUM 1 GM VIAL ONE (08:59)
--- NOTE | 2020-04-05 09:16 | ANES ---
Anesthesia Pre Procedure Eval Vitals/Labs: Last Vital Signs Temp 36.7 C 04/05/20 08:40 Pulse 55 L 04/05/20 08:40 Resp 28 H 04/05/20 08:40 BP 140/61 04/05/20 08:40 Pulse Ox 94 04/05/20 08:40 HOME MEDICATIONS warfarin 5 mg tablet 5 mg PO SUTUWETHFRSA tab 03/27/18 [Last Taken 03/31/20] blood-glucose meter See Dose Instructions .ROUTE .MEDSUPPLY #1 ea 09/18/18 [Last Taken Unknown] lancets See Dose Instructions .ROUTE .MEDSUPPLY #100 ea 09/23/18 [Last Taken Unknown] CPAP Supplies (Foam Filter, Headgear, Chin Strap, Water Chamber) 0 .ROUTE .MEDSUPPLY #1 ea 11/11/18 [Last Taken Unknown] CPAP Supplies (Full Face Cushion/Pillows, Disposable Filters) 0 .ROUTE .MEDSUPPLY #6 ea 11/11/18 [Last Taken Unknown] CPAP Supplies (Full Face Mask, Tubing) 0 .ROUTE .MEDSUPPLY #1 ea 11/11/18 [Last Taken Unknown] furosemide 40 mg tablet 80 mg PO BID tab 01/02/19 [Last Taken Unknown] Potassium Chloride [Klor-Con M20] 20 meq PO BID 01/21/19 [Last Taken Unknown] albuterol sulfate 90 mcg/actuation aerosol inhaler 2 inh IH Q6H PRN #8.5 g 02/06/19 [Last Taken Unknown] Durable Medical Equipment See Dose Instructions .ROUTE .MEDSUPPLY #1 ea 02/26/19 [Last Taken Unknown] blood sugar diagnostic See Dose Instructions .ROUTE .MEDSUPPLY #100 ea 07/28/19 [Last Taken Unknown] carvedilol 25 mg tablet 50 mg PO BID #360 tab 08/19/19 [Last Taken Unknown] clonidine HCl 0.1 mg tablet 0.1 mg PO BID #180 tab 08/19/19 [Last Taken Unknown] fenofibrate 54 mg tablet 54 mg PO DAILY #30 tab 11/13/19 [Last Taken Unknown] hydralazine 50 mg tablet 50 mg PO BID #60 tab 11/13/19 [Last Taken Unknown] levothyroxine 25 mcg tablet 25 mcg PO DAILY #30 tab 11/13/19 [Last Taken Unknown] simvastatin 20 mg tablet 20 mg PO HS #30 tab 11/13/19 [Last Taken Unknown] Warfarin Sodium 2.5 mg PO MO 12/08/19 [Last Taken Unknown] glimepiride 4 mg tablet 4 mg PO DAILY #30 tab 02/16/20 [Last Taken Unknown] metformin 500 mg tablet 500 mg PO BIDWM #60 tab 02/16/20 [Last Taken Unknown] gabapentin 400 mg capsule 800 mg PO BID cap 03/24/20 [Last Taken Unknown] Lisinopril/Hydrochlorothiazide [Lisinopril-Hctz 20-12.5 mg Tab] 1 ea PO HS [Last Taken Unknown] Lisinopril/Hydrochlorothiazide [Lisinopril-Hctz 20-12.5 mg Tab] 2 tab PO QAM 04/05/20 [Last Taken Unknown] Allergies/Adverse Reactions: Allergies Allergy/AdvReac Type Severity Reaction Status Date / Time No Known Allergies Allergy Verified 04/05/20 08:40 - Planned Procedure Planned Procedure: Right Total Knee Arthroplasty Medication List Reviewed:: Yes Allergies Verified: Yes Medical History (Last Reviewed 04/05/20 @ 09:07 by Alvin Alba CRNA) Obstructive sleep apnea (Chronic) Onset Date: 09/2017 Mild obstructive sleep apnea. AHI of 7 events per hour. CPAP setting 8cm/H2O. Atrial fibrillation (Chronic) Onset Date: 10/09/17 Bunion (Chronic) Onset Date: 07/29/12 Carotid arterial disease (Chronic) Onset Date: Unknown Diabetes mellitus, type II (Chronic) Onset Date: Unknown Onychomycosis (Acute) Onset Date: 2011 Foot ulcer (Resolved) Onset Date: Unknown Diabetes (Chronic) Onset Date: Unknown Diabetic eye exam Onset Date: 08/09/18 Dr. Ezra Garcia, [facility]. * Mild background diabetic retinopathy noted in both eyes. Diabetic retinopathy Onset Date: 08/09/18 Influenza vaccination declined Onset Date: ~06/04/18 Will get later this month Pericardial effusion Onset Date: Unknown Heart failure Onset Date: Unknown Hyperlipidemia Onset Date: Unknown Hypertension Onset Date: Unknown Metabolic disorder Onset Date: Unknown Peripheral neuropathy Onset Date: 2011 Carpal tunnel syndrome of right wrist Onset Date: Unknown History of cataract Onset Date: Unknown bilateral Pneumonia Onset Date: Unknown Asbestos exposure Onset Date: Unknown Surgical History (Last Reviewed 04/05/20 @ 09:07 by Alvin Alba CRNA) H/O arthroscopic knee surgery Onset Date: Unknown bilateral, unsure of year History of arthroplasty of knee Onset Date: 06/01/14 left History of carpal tunnel release Onset Date: Unknown right History of cataract removal with insertion of prosthetic lens Onset Date: Unknown bilateral History of colonoscopy Onset Date: 2010 Normal History of endoscopy Onset Date: 02/17/20 Dr. Kyle Breen, [facility] [place]. Nasal endoscopy. Hx of repair of rotator cuff Onset Date: Unknown bilateral Family History (Last Reviewed 04/05/20 @ 09:07 by Alvin Alba CRNA) Father Myocardial infarction, Onset Age: 81 Hypertension Mother Hypertension CVA (cerebral vascular accident), Onset Age: 71 - Family Anesthesia History Family History:: no untoward family reactions to anesthesia, no familial bleeding tendencies, no family history of clotting disorders, no family history of premature - Airway/Neck/Teeth Mallampatti Score: 3 Thyromental (T-M) distance: > 6 cm Mandibulo Hyoid distance: > 3 cm - Respiratory Respiratory History: other - Aesbestos exposure Respiratory Physical: lungs clear, decreased breath sounds Smoking Status: Never smoker Sleep Apnea currently treated: Yes Sleep Apnea by current assessment: Yes - Cardiovascular Cardiac History: arrhythmia, CHF, CAD, hypertension, hyperlipidemia Tolerate Activity: Fair Heart Sounds: S1 & S2, Irregular - Gastrointestinal NPO since: 2400 - Anesthesia Assessment and Plan ASA Class: PS, III Anesthesia Type Plan: Block - Adductor canal block for post op pain relief, Spi nal
[2020-04-05] MEDS: RINGER'S SOLUTION,LACTATED 1,000 ML IV PRN ×2 (09:25→10:35)
[2020-04-05 09:34] LABS: Prothrombin Time (Patient) 14.8 Seconds (9.1-10.7)
[2020-04-05 09:36] LABS: INR 1.52 INR (0.92-1.08)
[2020-04-05] MEDS ORDERED: ISOPROPYL ALCOHOL 480 APPL BTL MC ONE (10:02)
[2020-04-05] MEDS ORDERED: diphenhydrAMINE HCL 50 MG/ML VIAL IV PRN (11:26)
[2020-04-05] MEDS ORDERED: ACETAMINOPHEN 500 MG TABLET PO PRN (11:26)
[2020-04-05] MEDS ORDERED: RINGER'S SOLUTION,LACTATED 1,000 ML IV PRN (11:26)
[2020-04-05] MEDS ORDERED: ZOLPIDEM TARTRATE 5 MG TABLET PO PRN (11:26)
[2020-04-05] MEDS ORDERED: MAG HYDROX/ALUMINUM HYD/SIMETH 30 ML UDC PO PRN (11:26)
[2020-04-05] MEDS ORDERED: MAGNESIUM HYDROXIDE 30 ML UDC PO PRN (11:26)
[2020-04-05] MEDS ORDERED: ALBUTEROL SULFATE 2.5 MG/0.5 ML VIAL.NEB IH PRN (11:28)
--- NOTE | 2020-04-05 11:32 | OR ---
Operative Report - Dictated Report Narrative: Date: 04/05/2020 Preoperative diagnosis: Right knee degenerative joint disease. Postoperative diagnosis: Right knee degenerative joint disease. Procedure: Right total knee arthroplasty. Surgeon: Mukesh Muñoz M.D. [employer] Cook: Rico Sellers PA-C (provided and essential set of skilled, educated hands that assisted with transfer, positioning, prepping, draping, manipulation, retraction, placement of jigs, injection, insertion of implants, irrigation, closure wounds, and dressings all of which could not be performed by the available surgical crew) Anesthesia: Spinal with regional block and local periarticular joint injection. Complications: None Specimens: Bone. Estimated blood loss: Minimal. Tourniquet time: 90 Minutes at 325 millimeters of mercury. Retained implants: Depuy Attune size 8 right lugged cemented posterior stabilized femoral component. Size 8 fixed-bearing cemented tibial platform. 8 by 5 millimeter posterior stabilized cross-linked tibial insert. 41 millimeter medialized patella button. Indications: Mr. Todd is a 74-year-old gentleman who has had longstanding right knee pain and arthrosis. This patient was followed in my clinic for period of time with significant complaints of right knee pain consistent with arthritic changes. He had failed conservative measures including, but not limited to, activity modification, passage of time, medications, and other conservative measures. Patient wished to proceed with surgical treatment. The risks, benefits, and alternatives were discussed in clinic. The risks of , blood clots, bleeding, infection, nerve/tendon blood vessel/ injury, malposition of components, intraoperative fracture, postoperative limited range of motion, persistent pain, failure of components, and need for additional procedures. Patient wished to proceed consent was obtained after answering all questions. Procedure: After marking the correct extremity on the floor, the patient was taken to the operating room. A timeout was performed. IV antibiotics consisting of Ancef were administered prior to the procedure. A regional followed by spinal anesthetic was induced by anesthesia, per my request, on the operative table with all bony prominences well-padded. Temple catheter was placed, and a bump was placed under the operative side buttock. SCDs and JUAN hose were utilized on the nonoperative leg. A well-padded tourniquet was applied to the operative thigh. The operative leg was then pre-scrubbed with alcohol, prepped, and draped in a standard sterile fashion. After exsanguinating the extremity with an Esmarch bandage, the tourniquet was inflated. After marking out the anterior knee for standard incision centered over the patella, the skin was incised and dissected down to the joint retinaculum. The joint retinaculum was marked out as well as the horizontal axis of the patella, and a standard medial parapatellar arthrotomy was then made. The most proximal aspect of the quadriceps tendon and the patella tendon insertion were protected from release. A partial synovectomy was performed as well as a resection of the infrapatellar fat pad. The distal femoral fat pad proximal to the trochlea was also resected using cautery. The soft tissues were elevated off the medial aspect of the proximal tibia using a Torres elevator ensuring that we did not transect the medial collateral ligament. Upon initial evaluation range of motion was approximately 5 degrees to 110 degrees of flexion. There were signs of advanced arthrosis in the medial, lateral, and patellofemoral joint spaces. There were large marginal osteophytes which were removed with a rongeur. The knee was hyperflexed and the patella was tucked laterally. Protecting the surrounding soft tissues with Homans, an entry drill was placed down the femoral canal using Whitesides line for guidance into the entry point. The intramedullary femoral alignment yajaira was utilized in order to cut the distal femur in 5 degrees of valgus resecting 11 millimeters of bone. Next the distal femur was sized to a size 8. A posterior referencing guide was utilized to place the distal femoral cutting block in 3 degrees of external rotation. This was pinned into place. The rotation was confirmed both visually and based on anatomic landmarks. The 4 in 1 cutting jig of the appropriate size was utilized in order to make all bony cuts. The christen wing was used to ensure no notching. Retractors were utilized in order to protect surrounding soft tissues. This cut did not result in any excessive notching. We then cut the box centered over the distal femur. This allowed for resection of the anterior and posterior cruciate ligaments. I then turned my attention to the preparation of the tibia. Using an extra medullary tibial alignment yajaira, 5 millimeters of bone was resected off the medial articular surface. This was made perpendicular to the mechanical axis of the joint with the alignment yajaira centered over the ankle mortise. The alignment yajaira was checked and was noted to be parallel to the mechanical axis, centered over the medial one third of the tibial tubercle, paralleling the anterior surface of the tibia. We then turned our attention to the remaining meniscus and soft tissues. These were removed while protecting the surrounding ligaments and soft tissues. The marginal osteophytes off the anterior, posterior, medial, lateral aspects of the femur and tibia were removed. The tibia was sized out to a size 8. Next the tibia was drilled and punched in an externally rotated position. Next the trial femur and a series of tibial inserts were utilized in order to allow for full extension and maximal flexion. It was found that a 5 millimeter insert gave the best range of motion and stability at multiple flexion points as well as at full extension there was less than 2 mm of gapping both medially and laterally. There is minimal anterior translation with the knee at 90 degrees of flexion and no signs of being able to dislocate the knee. The patella was then prepared. The initial thickness was 27 millimeters. This was reamed down to 17 millimeters parallel to the anterior surface of the patella. It was sized out to a size 41 medialized patella button. This was then drilled and trialed. Without any medial restraint the patella tracked appropriately and did not sublux or dislocate. At this point, it was felt these were the appropriate sized implants, and all trials were removed. The standard periarticular joint injection consisting of ropivacaine, Toradol, and epinephrine were injected into the periarticular joint tissues. The bony surfaces were thoroughly irrigated with a pulsatile-suction saline irrigation device. A bone plug from the prior resected anterior chamfer cut was placed into the drill hole at the distal femur. The bony surfaces were then dried in preparation for placement of the implants. The cement was vacuum mixed per the flag car driver's instructions. The cement was placed on the dry bony surfaces and posterior aspect of the implants. The implants were impacted into place, removing all extruded cement. At this point anesthesia administered tranexamic acid per protocol intravenously. The knee was placed in extension with axial loading with the trial insert while the cement cured. Once the cement cured, all remaining extruded cement was removed. The knee was placed through a range of motion with the trial insert to ensure appropriate range of motion and stability. Final range of motion was approximately 0 to 120 degrees. The knee was again thoroughly irrigated with pulsatile saline lavage. The final polyethylene insert was then impacted into place ensuring no retained soft tissues. The remaining periarticular joint injection was injected. A medium Hemovac drain was placed exiting superior laterally. The knee was then placed over a triangle and the arthrotomy was closed with interrupted #1 Vicryl after thoroughly irrigating the joint. The deep and subcutaneous tissues were closed with interrupted 0 and 3-0 Vicryl respectively. Skin was closed with a running subcutaneous 3-0 Monocryl and Prineo Dermabond dressing. 4 x 4's, Sof-Rol, and a full leg Arian wrap were applied. All sponge, needle, blade, and instrument counts were correct prior to closing the wounds. Postoperative condition: The patient was awoken and transferred to the postanesthesia care unit in stable condition. Plan is to be admitted to the inpatient medical/surgical floor postoperatively for 24 hours of IV antibiotics, physical therapy, occupational therapy, and medical comanagement. Patient will be weightbearing as tolerated with range of motion as tolerated. DVT prophylaxis will be with SCDs, JUAN hose, and pharmacological anticoagulation. Anticipated hospital stay is approximately 1-3 days.
--- NOTE | 2020-04-05 11:45 | ANES ---
Post Anesthesia Discharge - Transfer of Care Transfer of Care handoff given to nurse: Yes - Discharge from PACU Discharge from PACU when meets criteria: Yes - Awake and comfortable.
--- NOTE | 2020-04-05 11:45 | ANES ---
Anesthesia Procedure Note Procedure Note: ANESTHESIA PROCEDURE NOTE Date of Procedure: 04/05/2020 Time of procedure: 9:40 AM. Performed by: MANUEL Cade CRNA, MSN Stopper Maker: Taylor Carreon RN. Preprocedure diagnosis: Post right total knee arthroplasty pain. Post procedure diagnosis: Same. Procedure: Right adductor Canal Block. Indications: Post right total knee arthroplasty pain relief. Findings: See below. Details of the procedure: The patient was brought to OR #2 and placed in supine position. The patient's right femoral area to the knee was prepped with chlorhexidine and using ultrasound guidance the right femoral artery and nerve was identified and then followed to the level of the adductor canal. Lidocaine 1% was infiltrated to the skin of the intended injection site. Under ultrasound guidance the saphenous nerve was approached with visualization of a 4 inch shielded block needle. Once saphenous nerve was identified with proximity to the needle tip, the saphenous nerve was surrounded with 30 mL bupivacaine 0.25% with 1-200,000 epinephrine. Please see radiology/ultrasound report for details and retained images of the procedure. EBL: 0 Fluids: N/A. Specimen: N/A. Post procedure condition: The patient tolerated the procedure well. No complications were noted. Thank you for this consultation. Alvin Alba CRNA, ARNP, MSN
--- NOTE | 2020-04-05 12:03 | ANES ---
Post Anesthesia Assessment - Vital Signs Vitals: Last Vital Signs Temp 37.2 C 04/05/20 11:55 Pulse 69 04/05/20 11:55 Resp 16 04/05/20 11:55 BP 123/51 04/05/20 11:55 Pulse Ox 94 04/05/20 11:55 Airway Patency: Normal - Mental Status Level Of Consciousness: Awake, Alert, Appropriate - Pain Level Pain Score: 0 - N/V Assessment Nausea/Vomiting Presence: None Dehydration:: No
[2020-04-05] MEDS: ceFAZolin SODIUM 1 GM in DEXTROSE 5 % IN WATER 100 ML IV SCH ×4 (12:37→18:51)
[2020-04-05] MEDS: oxyCODONE HCL/ACETAMINOPHEN 1 TAB TABLET PO PRN ×2 (13:50→18:50)
[2020-04-05] MEDS ORDERED: WARFARIN SODIUM 2.5 MG TABLET PO SCH (17:00)
[2020-04-05] MEDS: metFORMIN HCL 500 MG TABLET PO SCH (17:18)
[2020-04-05] MEDS: CLONIDINE HCL 0.1 MG TABLET PO SCH (20:29)
[2020-04-05] MEDS: hydrALAZINE HCL 50 MG TABLET PO SCH (20:29)
[2020-04-05] MEDS: CARVEDILOL 25 MG TABLET PO SCH (20:30)
[2020-04-05] MEDS: FUROSEMIDE 80 MG TABLET PO SCH (20:30)
[2020-04-05] MEDS: POTASSIUM CHLORIDE 20 MEQ TABLET.SA PO SCH (20:30)
[2020-04-05] MEDS: LISINOPRIL 20 MG TABLET PO SCH (20:31)
[2020-04-05] MEDS: GABAPENTIN 400 MG CAPSULE PO SCH (20:32)
[2020-04-05] MEDS: SIMVASTATIN 20 MG TABLET PO SCH (20:32)
[2020-04-05] MEDS: MORPHINE SULFATE 15 MG TABLET.SA PO SCH (20:32)
[2020-04-05] MEDS: SENNOSIDES/DOCUSATE SODIUM 1 TAB TABLET PO SCH (20:33)
[2020-04-05] MEDS ORDERED: HYDROCHLOROTHIAZIDE 12.5 MG CAPSULE PO SCH (21:00)
[2020-04-06] MEDS: ceFAZolin SODIUM 1 GM in DEXTROSE 5 % IN WATER 100 ML IV SCH ×2 (01:10)
[2020-04-06] MEDS: oxyCODONE HCL/ACETAMINOPHEN 1 TAB TABLET PO PRN ×2 (01:11→05:33)
[2020-04-06] MEDS: ONDANSETRON HCL/PF 2 MG/ML VIAL IV PRN ×2 (06:09→10:51)
[2020-04-06 06:57] LABS: Anion Gap 11.2 mmol/L (6.8-13.8); BUN/Creatinine Ratio 19.4 (9.0-21.6); Calcium * 9.1 mg/dL (7.9-10.9); Carbon Dioxide 31.6 mmol/L (24-32.6); Estimated Creat Clear 39.3; Hemoglobin 11.2 gm/dL (13.5-18.0); Mean Cell Volume 90.7 fl (78-100); Mean Corpuscular Hemoglobin 28.2 pg (27-31); Mean Corpuscular Hgb Conc 31.1 g/dl (32-36); Platelet Count 134 K/mm3 (150-450); Potassium 3.8 mmol/L (3.4-4.6); Red Blood Count 3.97 M/mm3 (4.7-6.0); Red Cell Distribution Width 16.7 % (11.5-14.0); White Blood Count 9.5 K/mm3 (4.0-10.5)
[2020-04-06 06:59] LABS: INR 1.5 INR (0.92-1.08); Prothrombin Time (Patient) 14.6 Seconds (9.1-10.7)
[2020-04-06] MEDS: LEVOTHYROXINE SODIUM 25 MCG TABLET PO SCH (07:02)
[2020-04-06] MEDS ORDERED: MORPHINE SULFATE 10 MG/0.5 ML SYRINGE PO PRN (08:16)
[2020-04-06] MEDS: HYDROCHLOROTHIAZIDE 25 MG TABLET PO SCH (11:02)
[2020-04-06] MEDS: MORPHINE SULFATE 15 MG TABLET.SA PO SCH (11:02)
[2020-04-06] MEDS: FUROSEMIDE 80 MG TABLET PO SCH (11:02)
[2020-04-06] MEDS: LISINOPRIL 40 MG TABLET PO SCH (11:02)
[2020-04-06] MEDS: metFORMIN HCL 500 MG TABLET PO SCH ×2 (11:03→16:49)
[2020-04-06] MEDS: GLIMEPIRIDE 4 MG TABLET PO SCH (11:03)
[2020-04-06] MEDS: FENOFIBRATE,MICRONIZED 67 MG CAPSULE PO SCH (11:03)
[2020-04-06] MEDS: POTASSIUM CHLORIDE 20 MEQ TABLET.SA PO SCH (11:03)
[2020-04-06] MEDS: hydrALAZINE HCL 50 MG TABLET PO SCH (11:03)
[2020-04-06] MEDS: CLONIDINE HCL 0.1 MG TABLET PO SCH (11:04)
[2020-04-06] MEDS: GABAPENTIN 400 MG CAPSULE PO SCH (11:04)
[2020-04-06] MEDS: CARVEDILOL 25 MG TABLET PO SCH (11:04)
[2020-04-06] MEDS: ENOXAPARIN SODIUM 40 MG/0.4 ML SYRG SC SCH (11:07)
[2020-04-06] MEDS ORDERED: SCOPOLAMINE HYDROBROMIDE 1.5 MG PATC TD ONE (11:42)
--- NOTE | 2020-04-06 15:57 | PN ---
Subjective - Date and Time Seen Date: 04/06/20 Time: 08:00 Subjective Narrative: Subjective: Reports significant nausea and vomiting. Was able to move limited due to his nausea with therapy. Pain is well-controlled. Voiding without any complications. Tolerating by mouth intake. He reports his pain is doing okay. Denies calf pain. Slept well. Physical exam: Alert and oriented to person, place and time Right lower extremity: Palpable dorsalis pedis pulse. Sensation grossly intact to light touch. Dressings clean and dry. Able to flex and extend ankle and toes. No excessive drainage. Calf and thigh are soft and nontender. Assessment: Postop day 1 status post right total knee arthroplasty. Plan: Due to the need for pain control, post-operative limited mobility, protection of the surgical site and joint, monitoring of the wound, and the management of chronic medical conditions, as well as his uncontrolled nausea, he requires continued inpatient care. Continue with physical and occupational therapy weightbearing as tolerated. Continue with anticoagulation. 24 hours postoperative prophylactic antibiotics. Pain control with goal to rely on oral medications-discontinued the long-acting morphine and will utilize nausea medicines including scopolamine patch. Continue bowel regimen. Will need 6 weeks with walker or assitive device to protect joint while ambulating during the recovery process. Discharge planning. Discontinue drain and Temple catheter. Objective - Vitals Vitals: Last Vital Signs Temp 36.6 C 04/06/20 14:26 Pulse 84 04/06/20 14:26 Resp 21 H 04/06/20 14:26 BP 138/66 04/06/20 14:26 Pulse Ox 88 L 04/06/20 14:26 - Abnormal Lab Findings Abnormal Lab Findings: Abnormal Lab Results 04/06/20 04/06/20 04/06/20 Range/Units 06:47 06:47 06:47 RBC 3.97 L (4.7-6.0) M/mm3 Hgb 11.2 L (13.5-18.0) gm/dL Hct 36.0 L (42.0-52.0) % MCHC 31.1 L (32-36) g/dl RDW 16.7 H (11.5-14.0) % Plt Count 134 L (150-450) K/mm3 MPV 13.0 H (8-11.3) fl PT 14.6 H (9.1-10.7) Seconds INR (Anticoag Therapy) 1.50 H (0.92-1.08) INR BUN 37 H (6-23) mg/dL Creatinine 1.91 H (0.4-1.4) mg/dL Est GFR (Non-Af Amer) 37 L D (60-130) mL/min Random Glucose 141 H (70-110) mg/dL Cauti Physician Documentation - Urinary Catheter Management Urethral (Temple) Date of Insertion: 04/05/20 Time of Insertion: 10:00 Date of Removal: 04/06/20 Time of Removal: 05:33 Assessment/Plan - Problems/Diagnosis (1) Chronic kidney disease, stage 3 Problem: Chronic Narrative: We will continue to monitor intake and output. We will repeat Chem-7 in the morning. Encourage p.o. fluids and continue with chronic renal medications. (2) Atrial fibrillation Problem: Chronic Qualifiers: (3) Total knee replacement status Problem: Acute Qualifiers: Laterality: right Qualified Code(s): Z96.651 - Presence of right artificial knee joint (4) Carotid arterial disease Problem: Chronic (5) Diabetes mellitus, type II Problem: Chronic Qualifiers: (6) Diabetic neuropathy Problem: Chronic Qualifiers: (7) Hypertension Problem: Chronic Qualifiers: (8) Lower extremity edema Problem: Chronic (9) Obstructive sleep apnea Problem: Chronic (10) Onychomycosis Problem: Chronic
[2020-04-06] MEDS ORDERED: RINGER'S SOLUTION,LACTATED 1,000 ML IV ONE (16:07)
[2020-04-06] MEDS: WARFARIN SODIUM 5 MG TABLET PO SCH (16:51)
[2020-04-06] MEDS ORDERED: ONDANSETRON HCL/PF 2 MG/ML VIAL IV PRN (19:37)
[2020-04-06 19:39] LABS: Hematocrit 35.1 % (42.0-52.0); Hemoglobin 10.9 gm/dL (13.5-18.0); Mean Cell Volume 91.4 fl (78-100); Mean Corpuscular Hemoglobin 28.4 pg (27-31); Mean Corpuscular Hgb Conc 31.1 g/dl (32-36); Mean Platelet Volume 11.6 fl (8-11.3); Neutrophil # 8.2 K/mm3 (1.3-6.0); Neutrophil % 77.6 % (42-75.0); Platelet Count 122 K/mm3 (150-450); Red Blood Count 3.84 M/mm3 (4.7-6.0); White Blood Count 10.5 K/mm3 (4.0-10.5)
[2020-04-06 19:58] LABS: Albumin * 3.2 gm/dl (3.4-5.0); Anion Gap 10.4 mmol/L (6.8-13.8); BUN/Creatinine Ratio 17.9 (9.0-21.6); Bilirubin, Total 0.6 mg/dL (0.0-1.1); Ca. Corrected For Albumin 9.1 mg/dL (8.4-10.2); Calcium * 8.8 mg/dL (7.9-10.9); Carbon Dioxide 30.9 mmol/L (24-32.6); Potassium 4.3 mmol/L (3.4-4.6); Total Protein 7.4 gm/dL (6.2-8.2)
[2020-04-06] MEDS: MORPHINE SULFATE 2 MG/ML DISP.SYRIN IV PRN ×2 (20:44→22:28)
--- NOTE | 2020-04-06 21:05 | CONS ---
- Reason for consultation (1) Acute respiratory failure Date of Service: 04/06/20 HPI - General Date of Service: 04/06/20 Narrative: Maxime steinberg is a 74-year-old male patient of Dr. Reddy. He had a total knee arthroplasty done earlier today and had a near respiratory arrest this evening where he became very hypoxic. He was started on BiPAP and has improved significantly with that. The cause of the ventilatory failure is unknown at this time. He is anticoagulated. Dr. Reddy asked me to see him and assist in medical management. His vital signs have been stable. When I first saw him he was asleep and I could not arouse him. I opened his eyes and pupils were pinpoint but even that did not awaken him. I got a second set of blood gases and while that was being drawn he began to arouse around and wake up some. He was wanting to drink some water and because of the vomiting he has had earlier today and the risk for aspiration I said no. He can rinse his mouth out but should not swallow anythin g. The EKG shows that he is in atrial fib flutter and has a right bundle branch block and a left posterior hemiblock (bifascicular block) but nothing acute. His blood gases showed a PO2 of 38 and O2 sat of 70% and a PCO2 of 45. He is a morbidly obese gentleman with severe hypertension, renal insufficiency (EGFR 32) diabetes, and hyperlipidemia. He appears to have stabilized with the BiPAP and I will continue that for a while tonight but may consider starting to wean him later. I have held all of his p.o. medications and will keep him n.p.o. through the night. He can rinse his mouth out if he wishes but not to swallow. Nursing reports that he has had poor urine output. Bladder scan only showed 20 cc of urine. He has a lot of edema in his legs. Neck veins are not distended and the HJR is negative at about 15 degrees head elevation. He is tolerating the BiPAP well so we will just leave it on for now. I have left his IV medicines intact so he can have pain medicine as he needs it. Source: patient, RN/MD, RN notes reviewed Exam Limitations: clinical condition - Hypersomnolence, hypoxemia, status post left total knee arthroplasty - History of Present Illness Timing/Duration: 1/2 hour Severity: severe Modifying Factors - (Worsens): Reports: eating, medication Modifying Factors - (Improves): Reports: medication, other - BiPAP Associated Symptoms: malaise, nausea, vomiting, shortness of breath Allergies/Adverse Reactions: Allergies No Known Allergies Allergy (Verified 04/05/20 08:40) Home Medications: Home Medications Medication Instructions Recorded Last Taken warfarin 5 mg tablet 5 mg PO SUTUWETHFRSA tab 03/27/18 03/31/20 blood-glucose meter See Dose Instructions .ROUTE 09/18/18 Unknown .MEDSUPPLY #1 ea lancets See Dose Instructions .ROUTE 09/23/18 Unknown .MEDSUPPLY #100 ea CPAP Supplies (Foam Filter, 0 .ROUTE .MEDSUPPLY #1 ea 11/11/18 Unknown Headgear, Chin Strap, Water Chamber) CPAP Supplies (Full Face 0 .ROUTE .MEDSUPPLY #6 ea 11/11/18 Unknown Cushion/Pillows, Disposable Filters) CPAP Supplies (Full Face Mask, 0 .ROUTE .MEDSUPPLY #1 ea 11/11/18 Unknown Tubing) furosemide 40 mg tablet 80 mg PO BID tab 01/02/19 Unknown Potassium Chloride [Klor-Con M20] 20 meq PO BID 01/21/19 Unknown albuterol sulfate 90 mcg/actuation 2 inh IH Q6H PRN #8.5 g 02/06/19 Unknown aerosol inhaler Durable Medical Equipment See Dose Instructions .ROUTE 02/26/19 Unknown .MEDSUPPLY #1 ea blood sugar diagnostic See Dose Instructions .ROUTE 07/28/19 Unknown .MEDSUPPLY #100 ea carvedilol 25 mg tablet 50 mg PO BID #360 tab 08/19/19 Unknown clonidine HCl 0.1 mg tablet 0.1 mg PO BID #180 tab 08/19/19 Unknown fenofibrate 54 mg tablet 54 mg PO DAILY #30 tab 11/13/19 Unknown hydralazine 50 mg tablet 50 mg PO BID #60 tab 11/13/19 Unknown levothyroxine 25 mcg tablet 25 mcg PO DAILY #30 tab 11/13/19 Unknown simvastatin 20 mg tablet 20 mg PO HS #30 tab 11/13/19 Unknown Warfarin Sodium 2.5 mg PO MO 12/08/19 Unknown glimepiride 4 mg tablet 4 mg PO DAILY #30 tab 02/16/20 Unknown metformin 500 mg tablet 500 mg PO BIDWM #60 tab 02/16/20 Unknown gabapentin 400 mg capsule 800 mg PO BID cap 03/24/20 Unknown Lisinopril/Hydrochlorothiazide 1 ea PO HS 04/05/20 Unknown [Lisinopril-Hctz 20-12.5 mg Tab] Lisinopril/Hydrochlorothiazide 2 tab PO QAM 04/05/20 Unknown [Lisinopril-Hctz 20-12.5 mg Tab] Procedures Application of splint (10/15/03) Endoscopic polypectomy of large intestine (02/13/11) Excision of semilunar cartilage of knee (04/17/13) Insertion of intraocular lens prosthesis at time of cataract extraction, one- stage (09/29/13) Other local excision or destruction of lesion of joint, knee (04/17/13) Other local excision or destruction of lesion of joint, shoulder (01/25/05) Other partial ostectomy, other bones (09/20/12) Other partial ostectomy, scapula, clavicle, and thorax [ribs and sternum] (01/25/05) Other peripheral nerve or ganglion decompression or lysis of adhesions (02/10/03) Phacoemulsification and aspiration of cataract (09/29/13) Release of carpal tunnel (02/10/03) Rotator cuff repair (01/25/05) Synovectomy, knee (04/17/13) Total knee replacement (06/01/14) Medications - Medications Current Medications: Current Medications Carvedilol (Coreg) 50 mg PO BID RUMA Stop: 05/05/20 21:01 Last Admin: 04/06/20 11:04 Dose: 50 mg Documented by: Clonidine (Catapres) 0.1 mg PO BID RUMA Stop: 05/05/20 21:01 Last Admin: 04/06/20 11:04 Dose: 0.1 mg Documented by: Enoxaparin Sodium (Lovenox) 40 mg SC Q24H RUMA Stop: 05/06/20 10:28 Last Admin: 04/06/20 11:07 Dose: 40 mg Documented by: Fenofibrate (Lofibra) 67 mg PO DAILY RUMA Stop: 05/06/20 09:01 Last Admin: 04/06/20 11:03 Dose: 67 mg Documented by: Furosemide (Lasix) 80 mg PO BID [facility] Stop: 05/05/20 21:01 Last Admin: 04/06/20 11:02 Dose: 80 mg Documented by: Gabapentin (Neurontin) 800 mg PO BID [facility] Stop: 05/05/20 21:01 Last Admin: 04/06/20 11:04 Dose: 800 mg Documented by: Glimepiride (Amaryl) 4 mg PO DAILY [facility] Stop: 05/06/20 09:01 Last Admin: 04/06/20 11:03 Dose: 4 mg Documented by: Hydralazine HCl (Apresoline) 50 mg PO BID [facility] Stop: 05/05/20 21:01 Last Admin: 04/06/20 11:03 Dose: 50 mg Documented by: Hydrochlorothiazide (Hydrodiuril) 25 mg PO QAM [facility] Stop: 05/06/20 09:01 Last Admin: 04/06/20 11:02 Dose: 25 mg Documented by: Hydrochlorothiazide (Microzide) 12.5 mg PO [facility] Stop: 05/05/20 21:01 Last Admin: 04/05/20 20:32 Dose: 12.5 mg Documented by: Lactated Ringer's (Lactated Ringers) 1,000 mls @ 100 mls/hr IV .Q10H ONE Stop: 04/07/20 02:06 Last Infusion: 04/06/20 18:45 Dose: 0 mls/hr Documented by: Levothyroxine Sodium (Synthroid) 25 mcg PO DAILY@0700 [facility] Stop: 05/06/20 07:01 Last Admin: 04/06/20 07:02 Dose: 25 mcg Documented by: Lisinopril (Zestril) 20 mg PO [facility] Stop: 05/05/20 21:01 Last Admin: 04/05/20 20:31 Dose: 20 mg Documented by: Lisinopril (Zestril) [facility] Stop: 05/06/20 09:01 Last Admin: 04/06/20 11:02 Dose: 40 mg Documented by: Morphine Sulfate (Morphine Sulfate) 2 mg IV Q15M PRN PRN Reason: Severe Pain (pain scale 7-10) Stop: 05/05/20 11:27 Last Admin: 04/06/20 20:44 Dose: 2 mg Documented by: Potassium Chloride (K-Dur) 20 meq PO BID [facility] Stop: 05/05/20 21:01 Last Admin: 04/06/20 11:03 Dose: 20 meq Documented by: Senna/Docusate Sodium (Senokot-S) 2 tab PO [facility] Stop: 05/05/20 21:01 Last Admin: 04/05/20 20:33 Dose: 2 tab Documented by: Simvastatin (Zocor) 20 mg PO [facility] Stop: 05/05/20 21:01 Last Admin: 04/05/20 20:32 Dose: 20 mg Documented by: Warfarin Sodium (Coumadin) 5 mg PO SuTuWeThFrSa@1700 [facility] Stop: 05/06/20 17:01 Last Admin: 04/06/20 16:51 Dose: 5 mg Documented by: Warfarin Sodium (Coumadin) 2.5 mg PO Mo@1700 [facility] Stop: 05/05/20 17:01 Last Admin: 04/05/20 17:18 Dose: 2.5 mg Documented by: Physical Examination - Exam Vital Signs: Vital Signs - Last Taken Temp 36.6 C 04/06/20 14:26 Pulse 77 04/06/20 20:23 Resp 25 H 04/06/20 20:23 BP 138/66 04/06/20 14:26 Pulse Ox 100 04/06/20 20:23 O2 Oxygen Delivery Method Bi-pap - Results and Findings: Lab/Microbiology results last 24 hrs: Abnormal/Pending Laboratory Last 24 HRS 04/06/20 04/06/20 04/06/20 19:40 19:32 19:32 RBC 3.84 L Hgb 10.9 L Hct 35.1 L MCHC 31.1 L RDW 17.0 H Plt Count 122 L MPV 11.6 H Neutrophils % 77.6 H Lymphocytes % 11.0 L Monocytes % 9.6 H Neutrophils # 8.2 H Lymphocytes # 1.16 L PT INR (Anticoag Therapy) pCO2 pO2 Total CO2 29.1 H ABG pH ABG O2 Sat (Measured) BUN 41 H Creatinine 2.29 H Est GFR (Non-Af Amer) 30 L Random Glucose 134 H ALT 13 L B-Natriuretic Peptide 3725 H Albumin 3.2 L 04/06/20 04/06/20 04/06/20 18:50 06:47 06:47 RBC Hgb Hct MCHC RDW Plt Count MPV Neutrophils % Lymphocytes % Monocytes % Neutrophils # Lymphocytes # PT 14.6 H INR (Anticoag Therapy) 1.50 H pCO2 48.4 H pO2 39.7 L* Total CO2 26.7 H ABG pH 7.33 L ABG O2 Sat (Measured) 70.6 L BUN 37 H Creatinine 1.91 H Est GFR (Non-Af Amer) 37 L D Random Glucose 141 H ALT B-Natriuretic Peptide Albumin 04/06/20 06:47 RBC 3.97 L Hgb 11.2 L Hct 36.0 L MCHC 31.1 L RDW 16.7 H Plt Count 134 L MPV 13.0 H Neutrophils % Lymphocytes % Monocytes % Neutrophils # Lymphocytes # PT INR (Anticoag Therapy) pCO2 pO2 Total CO2 ABG pH ABG O2 Sat (Measured) BUN Creatinine Est GFR (Non-Af Amer) Random Glucose ALT B-Natriuretic Peptide Albumin - Assessments/Findings (1) Acute respiratory failure Problem: Acute (2) Renal failure Problem: Acute (3) Morbid obesity Problem: Acute (4) Nausea and vomiting Problem: Acute (5) Hypertension, accelerated Problem: Chronic (6) Diabetes Problem: Chronic Qualifiers: Diabetes mellitus type: type 2 Diabetes mellitus termite inspector insulin use: without termite inspector use Diabetes mellitus complication status: with hypoglycemia Diabetes mellitus complication detail: without coma Qualified Code(s): E11.649 - Type 2 diabetes mellitus with hypoglycemia without coma (7) Hypoxia Problem: Acute (8) Atrial fibrillation Problem: Chronic Qualifiers:
[2020-04-06] MEDS ORDERED: FUROSEMIDE 10 MG/ML VIAL IV ONE (21:11)
[2020-04-06] MEDS ORDERED: FUROSEMIDE 10 MG/ML VIAL ONE (22:13)
[2020-04-07] MEDS: MORPHINE SULFATE 2 MG/ML DISP.SYRIN IV PRN ×4 (04:52→19:22)
[2020-04-07 06:34] LABS: INR 1.53 INR (0.92-1.08); Prothrombin Time (Patient) 14.9 Seconds (9.1-10.7)
[2020-04-07 06:35] LABS: Anion Gap 11.3 mmol/L (6.8-13.8); BUN/Creatinine Ratio 17.4 (9.0-21.6); Calcium * 8.9 mg/dL (7.9-10.9); Carbon Dioxide 31.7 mmol/L (24-32.6); Estimated Creat Clear 28.4
[2020-04-07] MEDS: POTASSIUM CHLORIDE 20 MEQ TABLET.SA PO SCH ×2 (10:14→21:47)
[2020-04-07] MEDS: hydrALAZINE HCL 50 MG TABLET PO SCH ×2 (10:14→21:47)
[2020-04-07] MEDS: GLIMEPIRIDE 4 MG TABLET PO SCH (10:14)
[2020-04-07] MEDS: GABAPENTIN 400 MG CAPSULE PO SCH ×2 (10:15→21:47)
[2020-04-07] MEDS: FENOFIBRATE,MICRONIZED 67 MG CAPSULE PO SCH (10:15)
[2020-04-07] MEDS: ENOXAPARIN SODIUM 40 MG/0.4 ML SYRG SC SCH (10:15)
--- NOTE | 2020-04-07 13:16 | PN ---
Subjective - Date and Time Seen Date: 04/07/20 Time: 07:45 Subjective Narrative: Subjective: Doing better this morning. Last night he had some hypoxemia and somnolence likely related to his narcotics and anesthesia but responded to BiPAP and holding his narcotics. He still continues to have limited urine output but overall his mental status and function have improved significantly from last p.m. Was able to walk in the room with therapy. Pain is tolerable. Tolerating by mouth intake. He reports his pain is doing okay with limited narcotics. Denies calf pain. Physical exam: Alert and oriented to person, place and time Right lower extremity: Palpable dorsalis pedis pulse. Sensation grossly intact to light touch. Dressings clean and dry. Able to flex and extend ankle and toes. No excessive drainage. Calf and thigh are soft and nontender. Assessment: Postop day 2 status post right total knee arthroplasty. Plan: His renal function has decreased some and family medicine has been consulted to assist with medical management. He is moving better with therapy but is not safe to return home at this point. Continue with physical and occupational therapy weightbearing as tolerated. Continue with anticoagulation -Lovenox and Coumadin. Pain control with goal to rely on oral medications-discontinued the long-acting morphine and will utilize nausea medicines including scopolamine patch. Continue bowel regimen. Will need 6 weeks with walker or assitive device to protect joint while ambulating during the recovery process. Discharge planning. If doing well tomorrow goal is for discharge to home. Continue to wean from oxygen Objective - Vitals Vitals: Last Vital Signs Temp 36.7 C 04/07/20 10:12 Pulse 65 04/07/20 10:14 Resp 16 04/07/20 10:12 BP 128/55 04/07/20 10:14 Pulse Ox 100 04/07/20 11:23 - Abnormal Lab Findings Abnormal Lab Findings: Abnormal Lab Results 04/06/20 04/06/20 04/06/20 Range/Units 18:50 19:32 19:32 RBC 3.84 L (4.7-6.0) M/mm3 Hgb 10.9 L (13.5-18.0) gm/dL Hct 35.1 L (42.0-52.0) % MCHC 31.1 L (32-36) g/dl RDW 17.0 H (11.5-14.0) % Plt Count 122 L (150-450) K/mm3 MPV 11.6 H (8-11.3) fl Neutrophils % 77.6 H (42-75.0) % Lymphocytes % 11.0 L (20-51) % Monocytes % 9.6 H (0.0-9) % Neutrophils # 8.2 H (1.3-6.0) K/mm3 Lymphocytes # 1.16 L (1.5-3.5) k/mm3 PT (9.1-10.7) Seconds INR (Anticoag Therapy) (0.92-1.08) INR pCO2 48.4 H (35.0-48.0) mmHg pO2 39.7 L* (83.0-108.0) mmHg Total CO2 26.7 H (19.0-24.0) mmol/L ABG pH 7.33 L (7.35-7.45) ABG O2 Sat (Measured) 70.6 L (94.0-98.0) % BUN 41 H (6-23) mg/dL Creatinine 2.29 H (0.4-1.4) mg/dL Est GFR (Non-Af Amer) 30 L (60-130) mL/min Random Glucose 134 H (70-110) mg/dL ALT 13 L (19-67) U/L B-Natriuretic Peptide 3725 H (5-350) pg/mL Albumin 3.2 L (3.4-5.0) gm/dl 04/06/20 04/07/20 04/07/20 Range/Units 19:40 06:21 06:21 RBC (4.7-6.0) M/mm3 Hgb (13.5-18.0) gm/dL Hct (42.0-52.0) % MCHC (32-36) g/dl RDW (11.5-14.0) % Plt Count (150-450) K/mm3 MPV (8-11.3) fl Neutrophils % (42-75.0) % Lymphocytes % (20-51) % Monocytes % (0.0-9) % Neutrophils # (1.3-6.0) K/mm3 Lymphocytes # (1.5-3.5) k/mm3 PT 14.9 H (9.1-10.7) Seconds INR (Anticoag Therapy) 1.53 H (0.92-1.08) INR pCO2 (35.0-48.0) mmHg pO2 (83.0-108.0) mmHg Total CO2 29.1 H (19.0-24.0) mmol/L ABG pH (7.35-7.45) ABG O2 Sat (Measured) (94.0-98.0) % BUN 46 H (6-23) mg/dL Creatinine 2.64 H (0.4-1.4) mg/dL Est GFR (Non-Af Amer) 25 L (60-130) mL/min Random Glucose (70-110) mg/dL ALT (19-67) U/L B-Natriuretic Peptide (5-350) pg/mL Albumin (3.4-5.0) gm/dl [facility] Physician Documentation - Urinary Catheter Management Urethral ([place]) Date of Insertion: 04/05/20 Time of Insertion: 10:00 Date of Removal: 04/06/20 Time of Removal: 05:33 Assessment/Plan - Problems/Diagnosis (1) Chronic kidney disease, stage 3 Problem: Chronic (2) Atrial fibrillation Problem: Chronic Qualifiers: (3) Total knee replacement status Problem: Acute Qualifiers: Laterality: right Qualified Code(s): Z96.651 - Presence of right artificial knee joint (4) Carotid arterial disease Problem: Chronic (5) Diabetes mellitus, type II Problem: Chronic Qualifiers: (6) Diabetic neuropathy Problem: Chronic Qualifiers: (7) Hypertension Problem: Chronic Qualifiers: (8) Lower extremity edema Problem: Chronic (9) Obstructive sleep apnea Problem: Chronic (10) Onychomycosis Problem: Chronic (11) Acute respiratory failure Problem: Acute
[2020-04-07] MEDS: HYDROcodone/ACETAMINOPHEN 1 EACH TABLET PO PRN ×3 (14:56→21:48)
[2020-04-07] MEDS: TAMSULOSIN HCL 0.4 MG CAP.SR.24H PO SCH (17:30)
[2020-04-07] MEDS: WARFARIN SODIUM 5 MG TABLET PO SCH (17:30)
[2020-04-07] MEDS: CARVEDILOL 25 MG TABLET PO SCH (21:47)
[2020-04-07] MEDS: SENNOSIDES/DOCUSATE SODIUM 1 TAB TABLET PO SCH (21:47)
[2020-04-08] MEDS: HYDROcodone/ACETAMINOPHEN 1 EACH TABLET PO PRN ×4 (01:18→17:48)
[2020-04-08] MEDS ORDERED: FUROSEMIDE 10 MG/ML VIAL IV ONE ×2 (06:26→07:31)
[2020-04-08 06:43] LABS: Prothrombin Time (Patient) 14.5 Seconds (9.1-10.7)
[2020-04-08 06:47] LABS: INR 1.49 INR (0.92-1.08)
[2020-04-08 06:51] LABS: Anion Gap 10.3 mmol/L (6.8-13.8); BUN/Creatinine Ratio 23.3 (9.0-21.6); Calcium * 8.9 mg/dL (7.9-10.9); Estimated Creat Clear 30.7; Potassium 4.3 mmol/L (3.4-4.6)
[2020-04-08] MEDS: GLIMEPIRIDE 4 MG TABLET PO SCH (08:04)
[2020-04-08] MEDS: hydrALAZINE HCL 50 MG TABLET PO SCH ×2 (08:07→20:56)
[2020-04-08] MEDS: LEVOTHYROXINE SODIUM 25 MCG TABLET PO SCH (08:07)
[2020-04-08] MEDS: CARVEDILOL 25 MG TABLET PO SCH ×2 (08:08→20:57)
[2020-04-08] MEDS: GABAPENTIN 400 MG CAPSULE PO SCH ×2 (08:08→20:55)
[2020-04-08] MEDS: POTASSIUM CHLORIDE 20 MEQ TABLET.SA PO SCH (08:09)
[2020-04-08] MEDS: HYDROCHLOROTHIAZIDE 25 MG TABLET PO SCH (08:31)
[2020-04-08] MEDS: LISINOPRIL 40 MG TABLET PO SCH (08:31)
[2020-04-08] MEDS: FUROSEMIDE 80 MG TABLET PO SCH (08:31)
[2020-04-08] MEDS: ENOXAPARIN SODIUM 40 MG/0.4 ML SYRG SC SCH (11:00)
--- NOTE | 2020-04-08 13:08 | PN ---
Subjective - Date and Time Seen Date: 04/08/20 Time: 07:45 Subjective Narrative: Subjective: Doing better this morning. No significant issues last night. Blood sugar low this morning. He still continues to have limited urine output but overall his mobilility continues to improve. Was able to walk to the wang with therapy. Pain is tolerable - adjusted norco. Tolerating by mouth intake. Denies calf pain. Physical exam: Alert and oriented to person, place and time Right lower extremity: Palpable dorsalis pedis pulse. Sensation grossly intact to light touch. Dressings clean and dry. Able to flex and extend ankle and toes. No excessive drainage. Calf and thigh are soft and nontender. noted edema Assessment: Postop day 3 status post right total knee arthroplasty. Plan: His renal function has decreased some and family medicine has been consulted to assist with medical management. Family medicine is also assisting with DM and urine/renal function - see Dr. Sifuentes's notes. He is moving better with therapy but is not safe to return home at this point. Continue with physical and occupational therapy weightbearing as tolerated. Continue with anticoagulation -Lovenox and Coumadin. Pain control with goal to rely on oral medications. Continue bowel regimen. Will need 6 weeks with walker or assitive device to protect joint while ambulating during the recovery process. Discharge planning - looking at home with home health tomorrow pending medical stability. Objective - Vitals Vitals: Last Vital Signs Temp 36.3 C 04/08/20 07:14 Pulse 68 04/08/20 08:07 Resp 18 04/08/20 07:14 BP 143/97 H 04/08/20 08:07 Pulse Ox 96 04/08/20 07:14 - Abnormal Lab Findings Abnormal Lab Findings: Abnormal Lab Results 04/08/20 04/08/20 04/08/20 Range/Units 06:00 06:26 11:48 PT 14.5 H (9.1-10.7) Seconds INR (Anticoag Therapy) 1.49 H (0.92-1.08) INR BUN 57 H (6-23) mg/dL Creatinine 2.45 H (0.4-1.4) mg/dL Est GFR (Non-Af Amer) 28 L (60-130) mL/min BUN/Creatinine Ratio 23.3 H (9.0-21.6) Random Glucose 35 L D 47 L D (70-110) mg/dL [facility] Physician Documentation - Urinary Catheter Management Urethral ([place]) Date of Insertion: 04/05/20 Time of Insertion: 10:00 Date of Removal: 04/06/20 Time of Removal: 05:33 Assessment/Plan - Problems/Diagnosis (1) Chronic kidney disease, stage 3 Problem: Chronic (2) Atrial fibrillation Problem: Chronic Qualifiers: (3) Total knee replacement status Problem: Acute Qualifiers: Laterality: right Qualified Code(s): Z96.651 - Presence of right artificial knee joint (4) Carotid arterial disease Problem: Chronic (5) Diabetes mellitus, type II Problem: Chronic Qualifiers: (6) Diabetic neuropathy Problem: Chronic Qualifiers: (7) Hypertension Problem: Chronic Qualifiers: (8) Lower extremity edema Problem: Chronic (9) Obstructive sleep apnea Problem: Chronic (10) Onychomycosis Problem: Chronic (11) Acute respiratory failure Problem: Acute (12) Urinary retention Problem: Acute
--- NOTE | 2020-04-08 14:36 | PN ---
Progess Note - Interim Date: 04/08/20 Time: 14:32 Narrative: 04/08/20 14:32 Maxime awoke this morning and had a low blood sugar of 38 and was asymptomatic with that. He was given food and he ate it without difficulty and the follow-up blood sugar was 90. And then this afternoon just now at 230 he has a low blood sugar of 41 and once again he is asymptomatic. He is fully conversational. His skin is dry and he is in no distress. He he is getting a snack again. He is on Amaryl 4 mg daily. I am going to hold that tomorrow and start at 2 mg daily on Sunday. His pain is fairly well controlled. There is been no cardiac dysrhythmias so telemetry will be discontinued. I am also holding his potassium and his diuretics. His creatinine and EGFR have been worsening the last 3 days. He has had poor urine output at times but I think it is because he still dry even though he has peripheral edema in his legs. His neck veins are not distended and his HJR is negative. Lungs are clear. Impressions: 1 hypoglycemia 2. Stage IV chronic kidney disease 3. Dehydration 4. Peripheral edema lower extremities 5. Status post left total hip knee arthroplasty Plan: Please see orders.
[2020-04-08] MEDS ORDERED: DEXTROSE 4 GM/TAB BTL PO STA ×2 (15:42→15:49)
[2020-04-08] MEDS ORDERED: DEXTROSE 5 % IN WATER 1,000 ML IV PRN (16:12)
[2020-04-08] MEDS ORDERED: DEXTROSE 50%-WATER 50 ML SYRG IV PRN (17:34)
[2020-04-08] MEDS: WARFARIN SODIUM 5 MG TABLET PO SCH (17:48)
[2020-04-08] MEDS: TAMSULOSIN HCL 0.4 MG CAP.SR.24H PO SCH (17:48)
[2020-04-08] MEDS: CLONIDINE HCL 0.1 MG TABLET PO SCH (20:55)
[2020-04-08] MEDS: SENNOSIDES/DOCUSATE SODIUM 1 TAB TABLET PO SCH (20:57)
[2020-04-08] MEDS: LISINOPRIL 20 MG TABLET PO SCH (20:58)
[2020-04-08] MEDS: SIMVASTATIN 20 MG TABLET PO SCH (21:00)
[2020-04-08] MEDS ORDERED: DEXTROSE 50%-WATER 50 ML SYRG IV STA (21:21)
[2020-04-08] MEDS: DEXTROSE 10 % IN WATER 1,000 ML IV SCH (22:41)
[2020-04-09] MEDS ORDERED: DEXTROSE 4 GM/TAB BTL ONE (00:40)
[2020-04-09] MEDS: HYDROcodone/ACETAMINOPHEN 1 EACH TABLET PO PRN ×3 (01:40→17:30)
[2020-04-09] MEDS: DEXTROSE 10 % IN WATER 1,000 ML IV SCH (06:46)
[2020-04-09] MEDS: LEVOTHYROXINE SODIUM 25 MCG TABLET PO SCH (06:48)
[2020-04-09 07:51] LABS: Prothrombin Time (Patient) 14.8 Seconds (9.1-10.7)
[2020-04-09 07:52] LABS: INR 1.52 INR (0.92-1.08)
[2020-04-09 07:54] LABS: Anion Gap 10.8 mmol/L (6.8-13.8); BUN/Creatinine Ratio 31.6 (9.0-21.6); Calcium * 8.6 mg/dL (7.9-10.9); Carbon Dioxide 28.7 mmol/L (24-32.6); Estimated Creat Clear 35.4; Potassium 4.5 mmol/L (3.4-4.6)
[2020-04-09] MEDS: hydrALAZINE HCL 50 MG TABLET PO SCH ×2 (09:15→20:38)
[2020-04-09] MEDS: CLONIDINE HCL 0.1 MG TABLET PO SCH ×2 (09:17→20:39)
[2020-04-09] MEDS: GABAPENTIN 400 MG CAPSULE PO SCH ×2 (09:17→20:39)
[2020-04-09] MEDS: CARVEDILOL 25 MG TABLET PO SCH ×2 (09:17→20:39)
[2020-04-09] MEDS ORDERED: DEXTROSE 5 % IN WATER 1,000 ML IV PRN (09:24)
[2020-04-09] MEDS: FUROSEMIDE 80 MG TABLET PO SCH ×2 (10:03→10:43)
[2020-04-09] MEDS: ENOXAPARIN SODIUM 40 MG/0.4 ML SYRG SC SCH (10:43)
--- NOTE | 2020-04-09 12:42 | CONS ---
[facility] - General Date of Service: 04/09/20 Narrative: BSs have remained low until this morning when it was 108 and 145. I reduced the glucose from D10W to D5W this morning and slowed the infusion rate to 83cc/hr. and the BS has stayed above 100. So, I will Saline lock the IV and DC the D5W. Continue to monitor. If BSs continue to stay up then start Sitagliptin 50 mg tomorrow. He should be referred to a Nephrology upon discharge. Source: patient, RN/MD, RN notes reviewed Exam Limitations: no limitations - History of Present Illness Timing/Duration: 24 hours, changing over time Severity: moderate Modifying Factors - (Worsens): Reports: movement Modifying Factors - (Improves): Reports: rest Associated Symptoms: denies symptoms Allergies/Adverse Reactions: Allergies No Known Allergies Allergy (Verified 04/05/20 08:40) Home Medications: Home Medications Medication Instructions Recorded Last Taken warfarin 5 mg tablet 5 mg PO SUTUWETHFRSA tab 03/27/18 03/31/20 blood-glucose meter See Dose Instructions .ROUTE 09/18/18 Unknown .MEDSUPPLY #1 ea lancets See Dose Instructions .ROUTE 09/23/18 Unknown .MEDSUPPLY #100 ea CPAP Supplies (Foam Filter, 0 .ROUTE .MEDSUPPLY #1 ea 11/11/18 Unknown Headgear, Chin Strap, Water Chamber) CPAP Supplies (Full Face 0 .ROUTE .MEDSUPPLY #6 ea 11/11/18 Unknown Cushion/Pillows, Disposable Filters) CPAP Supplies (Full Face Mask, 0 .ROUTE .MEDSUPPLY #1 ea 11/11/18 Unknown Tubing) furosemide 40 mg tablet 80 mg PO BID tab 01/02/19 Unknown Potassium Chloride [Klor-Con M20] 20 meq PO BID 01/21/19 Unknown albuterol sulfate 90 mcg/actuation 2 inh IH Q6H PRN #8.5 g 02/06/19 Unknown aerosol inhaler Durable Medical Equipment See Dose Instructions .ROUTE 02/26/19 Unknown .MEDSUPPLY #1 ea blood sugar diagnostic See Dose Instructions .ROUTE 07/28/19 Unknown .MEDSUPPLY #100 ea carvedilol 25 mg tablet 50 mg PO BID #360 tab 08/19/19 Unknown clonidine HCl 0.1 mg tablet 0.1 mg PO BID #180 tab 08/19/19 Unknown fenofibrate 54 mg tablet 54 mg PO DAILY #30 tab 11/13/19 Unknown hydralazine 50 mg tablet 50 mg PO BID #60 tab 11/13/19 Unknown levothyroxine 25 mcg tablet 25 mcg PO DAILY #30 tab 11/13/19 Unknown simvastatin 20 mg tablet 20 mg PO HS #30 tab 11/13/19 Unknown Warfarin Sodium 2.5 mg PO MO 12/08/19 Unknown glimepiride 4 mg tablet 4 mg PO DAILY #30 tab 02/16/20 Unknown metformin 500 mg tablet 500 mg PO BIDWM #60 tab 02/16/20 Unknown gabapentin 400 mg capsule 800 mg PO BID cap 03/24/20 Unknown Lisinopril/Hydrochlorothiazide 1 ea PO HS 04/05/20 Unknown [Lisinopril-Hctz 20-12.5 mg Tab] Lisinopril/Hydrochlorothiazide 2 tab PO QAM 04/05/20 Unknown [Lisinopril-Hctz 20-12.5 mg Tab] Procedures Application of splint (10/15/03) Assistance with Respiratory Ventilation, Less than 24 Consecutive Hours, Continuous Positive Airway Pressure (04/05/20) Endoscopic polypectomy of large intestine (02/13/11) Excision of semilunar cartilage of knee (04/17/13) Insertion of intraocular lens prosthesis at time of cataract extraction, one- stage (09/29/13) Other local excision or destruction of lesion of joint, knee (04/17/13) Other local excision or destruction of lesion of joint, shoulder (01/25/05) Other partial ostectomy, other bones (09/20/12) Other partial ostectomy, scapula, clavicle, and thorax [ribs and sternum] (01/25/05) Other peripheral nerve or ganglion decompression or lysis of adhesions (02/10/03) Phacoemulsification and aspiration of cataract (09/29/13) Release of carpal tunnel (02/10/03) Replacement of Right Knee Joint with Synthetic Substitute, Cemented, Open A pproach (04/05/20) Rotator cuff repair (01/25/05) Synovectomy, knee (04/17/13) Total knee replacement (06/01/14) Medications - Medications Current Medications: Current Medications Acetaminophen (Tylenol) 1,000 mg PO Q6H PRN PRN Reason: Mild pain (pain scale 1-3) Stop: 05/05/20 11:27 Last Admin: 04/07/20 08:56 Dose: 1,000 mg Documented by: Hydrocodone Bitart/Acetaminophen (Naselle 5-325) 2 each PO Q6H PRN PRN Reason: Moderate Pain (pain scale 4-6) Stop: 05/08/20 07:55 Last Admin: 04/09/20 10:44 Dose: 1 each Documented by: Carvedilol (Coreg) 25 mg PO BID [facility] Stop: 05/07/20 21:01 Last Admin: 04/09/20 09:17 Dose: 25 mg Documented by: Clonidine (Catapres) 0.1 mg PO BID [facility] Stop: 05/05/20 21:01 Last Admin: 04/09/20 09:17 Dose: 0.1 mg Documented by: Enoxaparin Sodium (Lovenox) 40 mg SC Q24H [facility] Stop: 05/06/20 10:28 Last Admin: 04/09/20 10:43 Dose: 40 mg Documented by: Furosemide (Lasix) 80 mg PO DAILY@1100 [facility] Stop: 05/09/20 11:01 Last Admin: 04/09/20 10:43 Dose: 80 mg Documented by: Gabapentin (Neurontin) 800 mg PO BID [facility] Stop: 05/05/20 21:01 Last Admin: 04/09/20 09:17 Dose: 800 mg Documented by: Hydralazine HCl (Apresoline) 50 mg PO BID [facility] Stop: 05/05/20 21:01 Last Admin: 04/09/20 09:15 Dose: 50 mg Documented by: Levothyroxine Sodium (Synthroid) 25 mcg PO DAILY@0700 [facility] Stop: 05/06/20 07:01 Last Admin: 04/09/20 06:48 Dose: 25 mcg Documented by: Lisinopril (Zestril) 20 mg PO HS [facility] Stop: 05/05/20 21:01 Last Admin: 04/08/20 20:58 Dose: 20 mg Documented by: Morphine Sulfate (Morphine Sulfate) 2 mg IV Q15M PRN PRN Reason: Severe Pain (pain scale 7-10) Stop: 05/05/20 11:27 Last Admin: 04/07/20 19:22 Dose: 2 mg Documented by: Potassium Chloride (K-Dur) 20 meq PO BID [facility] Stop: 05/05/20 21:01 Last Admin: 04/08/20 08:09 Dose: 20 meq Documented by: Senna/Docusate Sodium (Senokot-S) 2 tab PO [facility] Stop: 05/05/20 21:01 Last Admin: 04/08/20 20:57 Dose: 2 tab Documented by: Simvastatin (Zocor) 20 mg PO [facility] Stop: 05/05/20 21:01 Last Admin: 04/08/20 21:00 Dose: 20 mg Documented by: Tamsulosin HCl (Flomax) 0.4 mg PO DAILY@1800 [facility] Stop: 05/07/20 18:01 Last Admin: 04/08/20 17:48 Dose: 0.4 mg Documented by: Warfarin Sodium (Coumadin) 5 mg PO SuTuWeThFrSa@1700 [facility] Stop: 05/06/20 17:01 Last Admin: 04/08/20 17:48 Dose: 5 mg Documented by: Warfarin Sodium (Coumadin) 2.5 mg PO Mo@1700 [facility] Stop: 05/05/20 17:01 Last Admin: 04/05/20 17:18 Dose: 2.5 mg Documented by: Review of Systems - Review of Systems Generalized/Overall Review: Present: Weakness EENTM: Present: No Symptoms Reported Respiratory: Present: No Symptoms Reported Cardiac: Present: No Symptoms Reported Abdominal: Present: No Symptoms Reported Genitourinary: Present: No Symptoms Reported Musculoskeletal: Present: Joint Pain - L. knee Neurological: Present: Numbness - feet, lower legs Skin: Present: No Symptoms Reported Endocrine: Present: No Symptoms Reported Physical Examination - Exam Vital Signs: Vital Signs - Last Taken Temp 36.7 C 04/09/20 10:42 Pulse 64 04/09/20 10:43 Resp 16 04/09/20 10:42 BP 124/56 04/09/20 10:43 Pulse Ox 96 04/09/20 10:42 O2 Oxygen Delivery Method Room Air Constitutional: Present: Alert, Oriented x3, Cooperative, Well developed, Well nourished, Mild distress, Elderly, Obese ENT Exam: Present: normal ENT inspection, hearing grossly normal Eye Exam: bilateral eye: normal inspection, PERRL, EOMI Neck: Present: non-tender, limited range of motion Breasts: Present: Exam deferred Respiratory: Present: chest non-tender, lungs clear, normal breath sounds, no respiratory distress, no accessory muscle use Cardiovascular/Chest: Present: normal peripheral pulses, regular rate, rhythm, no chest tenderness, edema Peripheral Pulses: carotid (R): 2+, carotid (L): 2+, radial (R): 2+, radial (L): 2+ Abdomen: Present: Normal bowel sounds, soft, nontender, nondistended, no rebound tenderness, no hepatospenomegaly, no masses /Rectal: Present: Exam deferred Extremity: Present: normal range of motion, non-tender, normal inspection, no pedal edema, no calf tenderness, normal capillary refill Skin Exam: Present: normal color, warm/dry, no cyanosis Lymphatic: Present: no adenopathy 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, normal cerebellar test, no motor/sensory deficits, alert, normal mood/affect, oriented x 3 Appearance: Present: appropriate appearance, appropriate insight, neat, no memory impairment Eye contact: Present: cooperative, good eye contact, normal speech Thoughts: Present: normal thought pattern, no apparent hallucination, normal mood /affect - Results and Findings: Lab/Microbiology results last 24 hrs: Abnormal/Pending Laboratory Last 24 HRS 04/09/20 04/09/20 04/08/20 07:35 07:35 20:40 PT 14.8 H INR (Anticoag Therapy) 1.52 H Sodium 131 L Chloride 96 L BUN 67 H Creatinine 2.12 H Est GFR (Non-Af Amer) 33 L BUN/Creatinine Ratio 31.6 H Random Glucose 38 L - Assessments/Findings (1) Acute respiratory failure Problem: Acute (2) Renal failure Problem: Acute (3) Morbid obesity Problem: Acute (4) Nausea and vomiting Problem: Acute (5) Hypertension, accelerated Problem: Chronic (6) Diabetes Problem: Chronic Qualifiers: Diabetes mellitus type: type 2 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
--- NOTE | 2020-04-09 13:34 | PN ---
Subjective - Date and Time Seen Date: 04/09/20 Time: 13:33 Subjective Narrative: Subjective: Continues to improve. Blood sugar low this morning. Urine output is improved but overall his mobilility continues to improve. Was able to walk to the wang with therapy. Pain is tolerable . Tolerating by mouth intake. Denies calf pain. Physical exam: Alert and oriented to person, place and time Right lower extremity: Palpable dorsalis pedis pulse. Sensation grossly intact to light touch. Dressings clean and dry. Able to flex and extend ankle and toes. No excessive drainage. Calf and thigh are soft and nontender. noted edema Assessment: Postop day 4 status post right total knee arthroplasty. Plan: His renal function has improved some and family medicine has been consulted to assist with medical management. He did have noted hypoglycemia and Dr. Bear feliz as been managing this see his note. Family medicine is also assisting with DM and urine/renal function - see Dr. Sifuentes's notes. He is moving better with therapy. Continue with physical and occupational therapy weightbearing as tolerated. Continue with anticoagulation -Lovenox and Coumadin. Pain control with goal to rely on oral medications. Continue bowel regimen. Will need 6 weeks with walker or assitive device to protect joint while ambulating during the recovery process. Discharge planning - looking at home with home health tomorrow pending medical stability. Objective - Vitals Vitals: Last Vital Signs Temp 36.7 C 04/09/20 10:42 Pulse 64 04/09/20 10:43 Resp 16 04/09/20 10:42 BP 124/56 04/09/20 10:43 Pulse Ox 96 04/09/20 10:42 - Abnormal Lab Findings Abnormal Lab Findings: Abnormal Lab Results 04/08/20 04/09/20 04/09/20 Range/Units 20:40 07:35 07:35 PT 14.8 H (9.1-10.7) Seconds INR (Anticoag Therapy) 1.52 H (0.92-1.08) INR Sodium 131 L (132-142) mmol/L Chloride 96 L (97-106) mmol/L BUN 67 H (6-23) mg/dL Creatinine 2.12 H (0.4-1.4) mg/dL Est GFR (Non-Af Amer) 33 L (60-130) mL/min BUN/Creatinine Ratio 31.6 H (9.0-21.6) Random Glucose 38 L (70-110) mg/dL Cauti Physician Documentation - Urinary Catheter Management Urethral ([place]) Date of Insertion: 04/05/20 Time of Insertion: 10:00 Date of Removal: 04/06/20 Time of Removal: 05:33 Assessment/Plan - Problems/Diagnosis (1) Chronic kidney disease, stage 3 Problem: Chronic (2) Atrial fibrillation Problem: Chronic Qualifiers: (3) Total knee replacement status Problem: Acute Qualifiers: Laterality: right Qualified Code(s): Z96.651 - Presence of right artificial knee joint (4) Carotid arterial disease Problem: Chronic (5) Diabetes mellitus, type II Problem: Chronic Qualifiers: (6) Diabetic neuropathy Problem: Chronic Qualifiers: (7) Hypertension Problem: Chronic Qualifiers: (8) Lower extremity edema Problem: Chronic (9) Obstructive sleep apnea Problem: Chronic (10) Onychomycosis Problem: Chronic (11) Acute respiratory failure Problem: Acute (12) Urinary retention Problem: Acute
[2020-04-09] MEDS ORDERED: WARFARIN SODIUM 7.5 MG TABLET PO ONE (17:00)
[2020-04-09] MEDS: TAMSULOSIN HCL 0.4 MG CAP.SR.24H PO SCH (17:30)
[2020-04-09] MEDS: LISINOPRIL 20 MG TABLET PO SCH (20:40)
[2020-04-09] MEDS: SENNOSIDES/DOCUSATE SODIUM 1 TAB TABLET PO SCH (20:40)
[2020-04-09] MEDS: SIMVASTATIN 20 MG TABLET PO SCH (20:41)
[2020-04-10 07:05] LABS: Prothrombin Time (Patient) 14.7 Seconds (9.1-10.7)
[2020-04-10 07:06] LABS: INR 1.51 INR (0.92-1.08)
[2020-04-10 07:08] LABS: Anion Gap 9.3 mmol/L (6.8-13.8); BUN/Creatinine Ratio 37.6 (9.0-21.6); Calcium * 8.7 mg/dL (7.9-10.9); Carbon Dioxide 29.3 mmol/L (24-32.6); Estimated Creat Clear 41.5; Potassium 4.6 mmol/L (3.4-4.6)
[2020-04-10] MEDS: LEVOTHYROXINE SODIUM 25 MCG TABLET PO SCH (07:38)
[2020-04-10] MEDS ORDERED: sitaGLIPtin PHOSPHATE 50 MG TABLET PO SCH (09:00)
[2020-04-10] MEDS ORDERED: GLIMEPIRIDE 2 MG TABLET PO SCH (09:00)
[2020-04-10] MEDS: FUROSEMIDE 80 MG TABLET PO SCH (10:16)
[2020-04-10] MEDS: ENOXAPARIN SODIUM 40 MG/0.4 ML SYRG SC SCH (10:17)
[2020-04-10] MEDS: POTASSIUM CHLORIDE 20 MEQ TABLET.SA PO SCH (10:18)
[2020-04-10] MEDS: GABAPENTIN 400 MG CAPSULE PO SCH (10:18)
[2020-04-10] MEDS: CLONIDINE HCL 0.1 MG TABLET PO SCH (10:20)
[2020-04-10] MEDS: CARVEDILOL 25 MG TABLET PO SCH (10:20)
[2020-04-10] MEDS: hydrALAZINE HCL 50 MG TABLET PO SCH (10:21)
--- NOTE | 2020-04-10 11:22 | DS ---
(1) Status post total right knee replacement Problem: Acute (2) Chronic kidney disease, stage 3 Problem: Chronic (3) Renal failure Problem: Acute Qualifiers: Renal failure chronicity: acute Acute renal failure type: unspecified Qualified Code(s): N17.9 - Acute kidney failure, unspecified (4) Nausea and vomiting Problem: Acute Qualifiers: Vomiting type: unspecified Vomiting Intractability: unspecified Qualified Code(s): R11.2 - Nausea with vomiting, unspecified Date of Discharge:: 04/10/20 Hospital Course: -74-year-old male was admitted status post right total knee arthroplasty. Patient had a mildly complicated stay postoperatively with significant acute renal failure and hypoglycemia. This and team is consulted his hypoglycemia has been corrected and appeared to normalize over the past 24 hours. Patient's acute renal failure has improved closer to baseline. Overall patient has stabilized his pain is well controlled. He rates it as mild at rest increases to a 7/10 with weightbearing activities. Patient otherwise appears stable. He has met all of his PT goals. He is returned to a p.o. diet without significant complication. He has had mild nausea that was treated with Zofran without complication. This appears to have resolved he is not requiring any significant antiemetic medications at this time. Patient continues to improve daily. Maxime Todd is confined to his home postoperatively with a right total knee arthroplasty. The need for usp is to continue monitor patient's blood sugars as well as wound healing. Patient will also require physical and occupational therapy to be performed as he is status post right total knee arthroplasty. Will recommend to continue per protocol. The need for home health care skilled services is directly related to time spent [id number] with this person. Discussed with medicine provider as well as the patient in terms of discharge plan. Patient can continue with the following recommendations: -Weightbearing as tolerated, assistive device PRN -PT/OT progress as tolerated -P.o. diet as tolerated, call orthopedics if nausea resumes -P.o. pain medication as prescribed -Maintain pernio dressing in place -DVT prophylaxis: Tubigrip or JUAN hose on lower extremities, Coumadin with monitoring through Coumadin clinic until therapeutic level reached patient will be given continued doses of Lovenox for the next 5 days Coumadin clinic and determine if there is a need to continue past that to achieve therapeutic level with Coumadin -Due to chronic kidney complications as well as acute renal failure postopera tively would recommend follow-up with nephrology to establish care -Due to complicated stay would recommend follow-up with PCP acutely on the week of 04/12/2020 -Disposition Discharge home with home health care, follow-up with PCP, establish with nephrology, follow-up with orthopedic outpatient clinic at 3 weeks postop Procedures Performed: see notes below List Procedures: Status post right total knee arthroplasty Results and Findings: Lab Pending Results 04/05/20 09:04: PT 14.8 H, INR (Anticoag Therapy) 1.52 H 04/06/20 06:47: WBC 9.5, RBC 3.97 L, Hgb 11.2 L, Hct 36.0 L, MCV 90.7, MCH 28.2, MCHC 31.1 L, RDW 16.7 H, Plt Count 134 L, MPV 13.0 H 04/06/20 06:47: PT 14.6 H, INR (Anticoag Therapy) 1.50 H 04/06/20 06:47: Sodium 140, Plasma Sodium 141, Potassium 3.8, Chloride 101, Carbon Dioxide 31.6, Anion Gap 11.2, BUN 37 H, Creatinine 1.91 H, Est GFR (Non- Af Amer) 37 L D, BUN/Creatinine Ratio 19.4, Random Glucose 141 H, Calcium 9.1 04/06/20 18:50: pCO2 48.4 H, pO2 39.7 L*, HCO3 25.2, Total CO2 26.7 H, Base Excess -1.0, ABG pH 7.33 L, ABG O2 Sat (Measured) 70.6 L 04/06/20 19:32: WBC 10.5, RBC 3.84 L, Hgb 10.9 L, Hct 35.1 L, MCV 91.4, MCH 28.4, MCHC 31.1 L, RDW 17.0 H, Plt Count 122 L, MPV 11.6 H, Immature Gran % (Auto) 0.30, Immature Gran # (Auto) 0.03, Neutrophils % 77.6 H, Lymphocytes % 11.0 L, Monocytes % 9.6 H, Eosinophils % 1.0, Basophils % 0.5, Nucleated RBC % 0.0, Neutrophils # 8.2 H, Lymphocytes # 1.16 L, Monocytes # 1.0, Eosinophils # 0.1, Absolute Basophils 0.1 04/06/20 19:32: Sodium 139, Plasma Sodium 140, Potassium 4.3, Chloride 102, Carbon Dioxide 30.9, Anion Gap 10.4, BUN 41 H, Creatinine 2.29 H, Est GFR (Non- Af Amer) 30 L, BUN/Creatinine Ratio 17.9, Random Glucose 134 H, Calcium 8.8, Calcium Adj for Albumin 9.1, Total Bilirubin 0.6, AST 14, ALT 13 L, Alkaline Phosphatase 103, B-Natriuretic Peptide 3725 H, Total Protein 7.4, Albumin 3.2 L 04/06/20 19:32: Lactic Acid, Venous 1.2 04/06/20 19:40: pCO2 47.7, pO2 101.5, HCO3 27.6, Total CO2 29.1 H, Base Excess 2.0, ABG pH 7.38, ABG O2 Sat (Measured) 97.5 04/07/20 06:21: PT 14.9 H, INR (Anticoag Therapy) 1.53 H 04/07/20 06:21: Sodium 142, Plasma Sodium 142, Potassium 4.0, Chloride 103, Carbon Dioxide 31.7, Anion Gap 11.3, BUN 46 H, Creatinine 2.64 H, Est GFR (Non- Af Amer) 25 L, BUN/Creatinine Ratio 17.4, Random Glucose 93 D, Calcium 8.9 04/08/20 06:00: PT 14.5 H, INR (Anticoag Therapy) 1.49 H 04/08/20 06:26: Sodium 137, Plasma Sodium 136, Potassium 4.3, Chloride 99, Carbon Dioxide 32.0, Anion Gap 10.3, BUN 57 H, Creatinine 2.45 H, Est GFR (Non- Af Amer) 28 L, BUN/Creatinine Ratio 23.3 H, Random Glucose 35 L D, Calcium 8.9 04/08/20 11:48: Random Glucose 47 L D 04/08/20 20:40: Random Glucose 38 L 04/09/20 07:35: PT 14.8 H, INR (Anticoag Therapy) 1.52 H 04/09/20 07:35: Sodium 131 L, Plasma Sodium 131, Potassium 4.5, Chloride 96 L, Carbon Dioxide 28.7, Anion Gap 10.8, BUN 67 H, Creatinine 2.12 H, Est GFR (Non- Af Amer) 33 L, BUN/Creatinine Ratio 31.6 H, Random Glucose 105 D, Calcium 8.6 04/10/20 06:40: PT 14.7 H, INR (Anticoag Therapy) 1.51 H 04/10/20 06:40: Sodium 133, Plasma Sodium 134, Potassium 4.6, Chloride 99, Carbon Dioxide 29.3, Anion Gap 9.3, BUN 68 H, Creatinine 1.81 H, Est GFR (Non-Af Amer) 39 L, BUN/Creatinine Ratio 37.6 H, Random Glucose 165 H D, Calcium 8.7 Discharge Location: Home Disposition: Home Health Service [facility] Health Condition: Stable Face to Face Encounter completed per [facility] Guidelines: Yes - see hospital course Discharge Activity: Activity as tolerated, Weight bearing - Assistive device PRN Discharge Diet: General/regular food Referrals: Gagandeep Soliz DO [Primary Care Provider] - Mukesh Muñoz MD [Staff Physician] - 04/27/20 9:15 am Problem Oriented Discharge Instructions to Patient/Family: Total Knee Replacement, Care After, [id number] Print Language (Persian or Greek Available): Persian Additional Patient Instructions (free text): [facility] Home Health new at discharge, please call and fax discharge information to them. Follow up in the Orthopedic office with Dr. Muñoz April 27 at 9:15 a.m. Prescriptions (Any new or edited meds): Enoxaparin Sodium [Lovenox] 40 mg SC Q24H #5 disp.syrin Transmission Status: Pending to [place] HYDROcodone/ACETAMINOPHEN [Swain 5-325] 2 ea PO Q6H PRN #60 tab PRN Reason: Moderate Pain (Pain Scale 4-6) Transmission Status: Received by [place] Complete Home Medications List: Complete Home Medication List: warfarin 5 mg tablet 5 mg PO SUTUWETHFRSA tab 03/27/18 blood-glucose meter See Dose Instructions .ROUTE .MEDSUPPLY #1 ea 09/18/18 lancets See Dose Instructions .ROUTE .MEDSUPPLY #100 ea 09/23/18 CPAP Supplies (Foam Filter, Headgear, Chin Strap, Water Chamber) 0 .ROUTE .MEDSUPPLY #1 ea 11/11/18 CPAP Supplies (Full Face Cushion/Pillows, Disposable Filters) 0 .ROUTE .MEDSUPPLY #6 ea 11/11/18 CPAP Supplies (Full Face Mask, Tubing) 0 .ROUTE .MEDSUPPLY #1 ea 11/11/18 furosemide 40 mg tablet 80 mg PO BID tab 01/02/19 Potassium Chloride [Klor-Con M20] 20 meq PO BID 01/21/19 albuterol sulfate 90 mcg/actuation aerosol inhaler 2 inh IH Q6H PRN #8.5 g 02/06/19 Durable Medical Equipment See Dose Instructions .ROUTE .MEDSUPPLY #1 ea 02/26/19 blood sugar diagnostic See Dose Instructions .ROUTE .MEDSUPPLY #100 ea 07/28/19 carvedilol 25 mg tablet 50 mg PO BID #360 tab 08/19/19 clonidine HCl 0.1 mg tablet 0.1 mg PO BID #180 tab 08/19/19 fenofibrate 54 mg tablet 54 mg PO DAILY #30 tab 11/13/19 hydralazine 50 mg tablet 50 mg PO BID #60 tab 11/13/19 levothyroxine 25 mcg tablet 25 mcg PO DAILY #30 tab 11/13/19 simvastatin 20 mg tablet 20 mg PO HS #30 tab 11/13/19 Warfarin Sodium 2.5 mg PO MO 12/08/19 glimepiride 4 mg tablet 4 mg PO DAILY #30 tab 02/16/20 metformin 500 mg tablet 500 mg PO BIDWM #60 tab 02/16/20 gabapentin 400 mg capsule 800 mg PO BID cap 03/24/20 Lisinopril/Hydrochlorothiazide [Lisinopril-Hctz 20-12.5 mg Tab] 1 ea PO HS 04/05/20 Lisinopril/Hydrochlorothiazide [Lisinopril-Hctz 20-12.5 mg Tab] 2 tab PO QAM 04/05/20 Carvedilol [Coreg] 25 mg PO BID tab 04/10/20 Enoxaparin Sodium [Lovenox] 40 mg SC Q24H #5 disp.syrin 04/10/20 Furosemide [Lasix] 80 mg PO DAILY@1100 tab 04/10/20 HYDROcodone/ACETAMINOPHEN [Swain 5-325] 2 ea PO Q6H PRN #60 tab 04/10/20 Amb Orders for Discharge: PT Evaluation and Treatment* Location: None Selected Forms: Patient Portal Registration
[2020-04-10 12:21] VITALS: BP 131/60
[2020-04-10] MEDS ORDERED: WARFARIN SODIUM 5 MG TABLET PO SCH (17:00)
== END 2020-04-10 13:18 | disposition home health service (06) | DRG 469 ==
LOC: MS 08:22 → EDSTATUS 10:15
PROVIDERS: ADMIT Orthopaedic Surgery; ATTEND Orthopaedic Surgery
DX: N18.3 Chronic kidney disease, stage 3 (moderate); I45.10 Unspecified right bundle-branch block; E66.01 Morbid (severe) obesity due to excess calories; I97.191 Other postprocedural cardiac functional disturbances following other surgery; T41.0X5A Adverse effect of inhaled anesthetics, initial encounter; I45.2 Bifascicular block; J96.01 Acute respiratory failure with hypoxia; R11.2 Nausea with vomiting, unspecified; I48.92 Unspecified atrial flutter; B35.1 Tinea unguium; G47.33 Obstructive sleep apnea (adult) (pediatric); E11.649 Type 2 diabetes mellitus with hypoglycemia without coma; E78.5 Hyperlipidemia, unspecified; I12.9 Hypertensive chronic kidney disease with stage 1 through stage 4 chronic kidney disease, or unspecified chronic kidney disease; Z68.42 Body mass index [BMI] 45.0-49.9, adult; R60.0 Localized edema; E86.0 Dehydration; M17.11 Unilateral primary osteoarthritis, right knee; T40.605A Adverse effect of unspecified narcotics, initial encounter; R33.9 Retention of urine, unspecified; N17.9 Acute kidney failure, unspecified; E11.22 Type 2 diabetes mellitus with diabetic chronic kidney disease
CPT/HCPCS: 36415; 36600; 71010; 71045; 73560; 80048; 80053; 82803; 82947; 83519; 83605; 83880; 85025; 85027; 85610; 93005; 94660; 97110; 97116; 97161; 97165; 97530; 97535; J2405

== ENCOUNTER 2020-11-06 10:57 | Observation (INO) ==
--- NOTE | 2020-11-06 11:45 | ERNOTE ---
Medical Problem HPI - Narrative Date of Service: 11/06/20 - General Chief Complaint: General Assessment Time Seen by Provider: 11/06/20 11:23 Source: patient Exam Limitations: no limitations - Immun/Allergies/Home Medications Immunizations: IMMUNIZATION HX Immunizations Up to Date Yes History of Influenza Vaccine Yes Hx Pneumococcal Vaccination Yes Allergies/Adverse Reactions: Allergies oxycodone [From Percocet] Adverse Reaction (Mild, Verified 10/22/20 09:31) Nausea Home Medications: HOME MEDICATIONS warfarin 5 mg tablet 5 mg PO SUTUWETHFRSA tab 03/27/18 [Last Taken 03/31/20] blood-glucose meter See Dose Instructions .ROUTE .MEDSUPPLY #1 ea 09/18/18 [Last Taken Unknown] CPAP Supplies (Foam Filter, Headgear, Chin Strap, Water Chamber) 0 .ROUTE .MEDSUPPLY #1 ea 11/11/18 [Last Taken Unknown] CPAP Supplies (Full Face Cushion/Pillows, Disposable Filters) 0 .ROUTE .MEDSUPPLY #6 ea 11/11/18 [Last Taken Unknown] CPAP Supplies (Full Face Mask, Tubing) 0 .ROUTE .MEDSUPPLY #1 ea 11/11/18 [Last Taken Unknown] Potassium Chloride [Klor-Con M20] 40 meq PO BID 01/21/19 [Last Taken Unknown] albuterol sulfate 90 mcg/actuation aerosol inhaler 2 inh IH Q6H PRN #8.5 g 02/06/19 [Last Taken Unknown] Durable Medical Equipment See Dose Instructions .ROUTE .MEDSUPPLY #1 ea 02/26/19 [Last Taken Unknown] blood sugar diagnostic See Dose Instructions .ROUTE .MEDSUPPLY #100 ea 07/28/19 [Last Taken Unknown] Warfarin Sodium 2.5 mg PO MOFR 12/08/19 [Last Taken Unknown] lancets See Dose Instructions .ROUTE .MEDSUPPLY #100 ea 05/04/20 [Last Taken Unknown] fenofibrate 54 mg tablet 54 mg PO DAILY #30 tab 06/04/20 [Last Taken Unknown] hydralazine 50 mg tablet 50 mg PO BID #60 tab 06/04/20 [Last Taken Unknown] levothyroxine 25 mcg tablet 25 mcg PO DAILY #30 tab 06/04/20 [Last Taken Unknown ] simvastatin 20 mg tablet 20 mg PO HS #30 tab 06/04/20 [Last Taken Unknown] gabapentin 400 mg capsule 800 mg PO BID 90 Days #360 cap 06/09/20 [Last Taken Unknown] blood sugar diagnostic See Rx Instructions .ROUTE .MEDSUPPLY #100 ea 08/09/20 [Last Taken Unknown] carvedilol 25 mg tablet 50 mg PO BID #360 tab 08/21/20 [Last Taken Unknown] Clonidine HCl [Catapres] 0.1 mg PO BID 10/18/20 [Last Taken Unknown] Fluticasone Propionate [Flonase] 2 spray GEETHA DAILY PRN 10/18/20 [Last Taken Unknown] Furosemide [Lasix] 80 mg PO BID #40 tab 10/18/20 [Last Taken Unknown] Lisinopril/Hydrochlorothiazide [Lisinopril-Hctz 20-12.5 mg Tab] 1 ea PO HS 10/18/20 [Last Taken Unknown] Lisinopril/Hydrochlorothiazide [Lisinopril-Hctz 20-12.5 mg Tab] 2 tab PO DAILY 10/18/20 [Last Taken Unknown] metFORMIN HCL [Metformin HCl ER] 500 mg PO BIDWM 10/18/20 [Last Taken Unknown] - History of Present History Narrative: 74-year-old male presents today with generalized dizziness and weakness. Past medical history hypertension, CHF, chronic kidney disease, diabetes type 2, atrial fibrillation. He presents today with acute onset dizziness and weakness this morning after taking his medications. He notes this occurred within an hour of taking them. He notes he has not had any significant symptoms like this before. He does note his PCP recently began him on a new blood pressure regimen. He also decreased his use of his Lasix. Patient denies any acute illness or significant trauma. He does note he had a significant nosebleed with multiple hour long stents of bleeding and epistaxis. Patient otherwise denies any loss of consciousness, he notes his symptoms have mildly improved he notes blood pressure at home was 80/40, this was taken with a home blood pressure cuff. Patient denies any other significant modifying factors. He notes his symptoms did partially improve after he sat down for about 15 to 20 minutes. He notes he has been able to tolerate a p.o. diet without significant complications this morning. He denies any other home remedies or significant radiating or modifying factors. He did note mild blurred vision with the acute onset of symptoms however he notes his is appeared to have resolved. Review of Systems - Review of Systems Constitutional: Absent: fever, chills EYE: Present: blurred vision. Absent: double vision ENT: Absent: ear pain, sore throat Respiratory: Absent: shortness of breath, cough Cardiology: Absent: chest pain, syncope Gastrointestinal/Abdominal: Absent: nausea, vomiting, diarrhea, constipation, abdominal pain Genitourinary: Absent: frequency, hematuria Musculoskeletal: Absent: back pain, joint pain Skin: Present: See HPI Neurological: Present: headache, dizziness/light-headedness, weakness. Absent: numbness, tingling Endocrine: Present: no symptoms reported Hematologic/Lymphatic: Present: no symptoms reported Psych: Present: no symptoms reported All Other Systems: All systems neg except as marked Medical History (Last Reviewed 11/06/20 @ 11:40 by YAMILE Winkler) Obstructive sleep apnea (Chronic) Onset Date: 09/2017 Mild obstructive sleep apnea. AHI of 7 events per hour. CPAP setting 8cm/H2O. Atrial fibrillation (Chronic) Onset Date: 10/09/17 Bunion (Chronic) Onset Date: 07/29/12 Carotid arterial disease (Chronic) Onset Date: Unknown Diabetes mellitus, type II (Chronic) Onset Date: Unknown Onychomycosis (Acute) Onset Date: 2011 Foot ulcer (Resolved) Onset Date: Unknown Diabetes (Chronic) Onset Date: Unknown Diabetic eye exam Onset Date: 09/11/20 09/11/2020: Dr. Ezra Garcia, [facility]. * Mild background diabetic retinopathy noted in both eyes. 08/09/2018: Dr. Ezra Garcia, [facility]. * Mild background diabetic retinopathy noted in both eyes. Diabetic retinopathy Onset Date: 08/09/18 Influenza vaccination declined Onset Date: ~06/04/18 Will get later this month Pericardial effusion Onset Date: Unknown Heart failure Onset Date: Unknown Hyperlipidemia Onset Date: Unknown Hypertension Onset Date: Unknown Metabolic disorder Onset Date: Unknown Peripheral neuropathy Onset Date: 2011 Carpal tunnel syndrome of right wrist Onset Date: Unknown History of cataract Onset Date: Unknown bilateral Pneumonia Onset Date: Unknown Asbestos exposure Onset Date: Unknown Surgical History: Surgical History (Last Reviewed 11/06/20 @ 11:40 by YAMILE Wnikler) History of knee replacement Onset Date: 04/05/20 Right total knee arthroplasty - H/O arthroscopic knee surgery Onset Date: Unknown bilateral, unsure of year History of arthroplasty of knee Onset Date: 06/01/14 left History of carpal tunnel release Onset Date: Unknown right History of cataract removal with insertion of prosthetic lens Onset Date: Unknown bilateral History of colonoscopy Onset Date: 2010 Normal History of endoscopy Onset Date: 02/17/20 Dr. Kyle Breen, [facility]. Nasal endoscopy. Hx of repair of rotator cuff Onset Date: Unknown bilateral Family History: Family History (Last Reviewed 11/06/20 @ 11:40 by YAMILE Winkler) Father Myocardial infarction, Onset Age: 81 Hypertension Mother Hypertension CVA (cerebral vascular accident), Onset Age: 71 Social History: (Last Reviewed 11/06/20 @ 11:40 by YAMILE Winkler) Social History: adopted: No senior living: No Marital status: household members: spouse number of children: 2 number of grandchildren: 3 current occupational status: retired current occupation: retired Highest level of school completed/degree received: high school graduate Service: Yes Service comment: [email or web address] branch: [employer] assignments: [employer] known or potential exposure: other details: possible agent orange exposure Tobacco: Smoking Status: Never smoker Tobacco: How many years used: 22 how long ago did patient quit smoking: age 33 Alcohol: alcohol intake: never Substance Use: substance use type: does not use Dietary Habits: caffeine: Yes caffeine comment: very little Type: tea Exercise: frequency: does not exercise Physical Exam - Physical Exam General Appearance: Present: wd/wn, alert, mild distress - Abdominal discomfort Head Exam: Present: normal inspection, no evidence of injury. Absent: Villalpando's Sign, raccoon eyes Eye Exam: Normal inspection: bilateral, EOMI: bilateral Ears, Nose, Throat: Present: normal ENT inspection, normal pharynx Neck: Present: normal inspection, nontender, full range of motion Respiratory: Present: no respiratory distress, normal breath sounds, no accessory muscle use, chest nontender, lungs clear Cardiovascular/Chest: Present: no murmur, irregularly irregular Gastrointestinal/Abdominal: Present: normal bowel sounds, nondistended, guarding - Diffuse guarding with significant tenderness diffusely throughout all quadrants Back Exam: Present: normal range of motion, no CVA tenderness, no vertebral tenderness Extremity Exam: Present: normal range of motion, extremity edema - 2+ bilateral chronic Neurological Exam: Present: alert, oriented, normal mood/affect, no motor/sensory deficits Skin Exam: Present: warm/dry, other - Venous stasis changes diffuse bilateral lower extremity Progress - Date and Time Seen: Date and Time: 11/06/20 13:00 Patient presents today with significant dizziness and weakness. After extensive exam patient has diffuse severe abdominal tenderness that severely limits the overall ability to examine his abdomen. He has significant diffuse tenderness, labs will be obtained including CBC, CMP, EKG, troponin, UCS, lipase and amylase. Discussed with patient concern for acute intra-abdominal processes a be causing significant diffuse tenderness. Note that we will obtain baseline imaging including an chest x-ray and flat and upright abdomen. Note that these were done did not any significant abnormalities patient is mildly anemic, BNP is slightly elevated 2300, troponin was negative, EKG consistent with previous, no acute findings on x-rays. Due to patient's significant continued abdominal pain will obtain a CT abdomen with contrast. We will continue to monitor patient's condition acutely. Note patient was getting an x-ray he began having epistaxis. His nose was clamped to provide pressure continue to monitor bleed appears to be lessened at this time. We will continue to monitor patient acutely adjust treatment plan accordingly. 11/06/20 16:00 Patient had significant worsening of his creatinine as well as decreased GFR. He also has what appears to be a chronic pericardial effusion. Based on his overall presentation and significant symptoms discussed this case with the internal medicine physician he wishes to admit this patient for continued monitoring and adjustment of his medications as well as treatment of his CARA and chronic CHF. Also discussed the pericardial effusion and the possible treatment options he is set up to have an echocardiogram on 11/09/2020. Discussed this case with the patient and that based on his current trajectory we would recommend admission for continued monitoring and treatment. He expressed understanding agreed to proceed. Covid test will be obtained prior to admission. - Results and Orders Patient's Lab Results:: I have reviewed the patient's lab results. Results and Orders: Laboratory Last Values WBC 6.5 K/mm3 (4.0-10.5) 11/06/20 12:00 RBC 3.60 M/mm3 (4.7-6.0) L 11/06/20 12:00 Hgb 10.0 gm/dL (13.5-18.0) L 11/06/20 12:00 Hct 32.6 % (42.0-52.0) L 11/06/20 12:00 MCV 90.6 fl (78-100) 11/06/20 12:00 MCH 27.8 pg (27-31) 11/06/20 12:00 MCHC 30.7 g/dl (32-36) L 11/06/20 12:00 RDW 16.2 % (11.5-14.0) H 11/06/20 12:00 Plt Count 124 K/mm3 (150-450) L 11/06/20 12:00 MPV 12.0 fl (8-11.3) H 11/06/20 12:00 Immature Gran % (Auto) 0.50 % (0.001-0.429) H 11/06/20 12:00 Immature Gran # (Auto) 0.03 K/mm3 (0.000-0.0310) 11/06/20 12:00 Neutrophils % 67.6 % (42-75.0) 11/06/20 12:00 Lymphocytes % 16.9 % (20-51) L 11/06/20 12:00 Monocytes % 11.2 % (0.0-9) H 11/06/20 12:00 Eosinophils % 3.2 % (0.0-3.0) H 11/06/20 12:00 Basophils % 0.6 % (0.0-1.0) 11/06/20 12:00 Nucleated RBC % 0.0 k/mm3 (0-1) 11/06/20 12:00 Neutrophils # 4.4 K/mm3 (1.3-6.0) 11/06/20 12:00 Lymphocytes # 1.10 k/mm3 (1.5-3.5) L 11/06/20 12:00 Monocytes # 0.7 k/mm3 (0.0-1.0) 11/06/20 12:00 Eosinophils # 0.2 k/mm3 (0.0-0.7) 11/06/20 12:00 Absolute Basophils 0.0 k/mm3 (0.0-0.1) 11/06/20 12:00 PT 26.1 Seconds (9.1-10.7) H 11/06/20 12:00 INR (Anticoag Therapy) 2.63 INR (0.92-1.08) H 11/06/20 12:00 PTT (Jack) 32.7 Seconds (24-32) H 11/06/20 12:00 Sodium 141 mmol/L (132-142) 11/06/20 12:00 Plasma Sodium 141 mmol/L (130-142) 11/06/20 12:00 Potassium 3.8 mmol/L (3.4-4.6) 11/06/20 12:00 Chloride 103 mmol/L (97-106) 11/06/20 12:00 Carbon Dioxide 29.1 mmol/L (24-32.6) 11/06/20 12:00 Anion Gap 12.7 mmol/L (6.8-13.8) 11/06/20 12:00 BUN 74 mg/dL (6-23) H 11/06/20 12:00 Creatinine 2.73 mg/dL (0.4-1.4) H D 11/06/20 12:00 Est GFR (Non-Af Amer) 24 mL/min (60-130) L D 11/06/20 12:00 BUN/Creatinine Ratio 27.1 (9.0-21.6) H 11/06/20 12:00 Random Glucose 118 mg/dL (70-110) H 11/06/20 12:00 Calcium 8.9 mg/dL (7.9-10.9) 11/06/20 12:00 Calcium Adj for Albumin 9.1 mg/dL (8.4-10.2) 11/06/20 12:00 Total Bilirubin 0.5 mg/dL (0.0-1.1) 11/06/20 12:00 AST 16 U/L (0-48) 11/06/20 12:00 ALT 18 U/L (19-67) L 11/06/20 12:00 Alkaline Phosphatase 70 U/L (50-170) 11/06/20 12:00 Troponin I Less than 0.017 ng/mL (0.00-0.10) 11/06/20 12:00 B-Natriuretic Peptide 2398 pg/mL (5-350) H 11/06/20 12:00 Total Protein 7.3 gm/dL (6.2-8.2) 11/06/20 12:00 Albumin 3.3 gm/dl (3.4-5.0) L 11/06/20 12:00 Amylase 33 U/L (25-115) 11/06/20 12:00 Lipase 175 U/L (73-393) 11/06/20 12:00 - Vital Signs Patient's Vital Signs:: I have reviewed the patient's vital signs. Vital Signs: Vital Signs 11/06/20 11:09 Temperature 36.0 C Pulse Rate 62 Respiratory Rate 16 Blood Pressure 111/47 O2 Sat by Pulse Oximetry 97 - EKG EKG #1 EKG: atrial fibrillation, RBBB EKG read: Reviewed by me EKG Comments: Reviewed with the ED physician. No significant changes from previous EKG - X-Ray X-Ray #1 X-Ray: chest Interpretation: Reviewed by me X-ray Comments: History: Chest pain starting yesterday. Hypotension. Technique: PA and lateral views of the chest are compared to prior dated October 18, 2021. Findings: Diffuse hyperinflation of the lungs bilaterally with flattening of the hemidiaphragm. The lungs are clear bilaterally. There is no consolidation, pleural effusion or pneumothorax. Cardiac silhouette is enlarged but stable. The pulmonary vasculature are normal. Aortic atherosclerosis. The osseous structures demonstrate degenerative changes of the spine and shoulders. IMPRESSION: NO ACUTE CARDIOPULMONARY ABNORMALITY IDENTIFIED. Electronically signed by John Hoyt D.O.. John Hoyt DO X-Ray #2 X-Ray: abdomen Interpretation: Reviewed by me X-ray Comments: Indication: Abdominal pain starting yesterday. Technique: Supine and upright views the abdomen utilizing 5 total images. Comparison: None Findings: Normal bowel gas pattern without evidence for obstruction. No significant fecal retention. No free air free fluid. Decreased bony mineralization. Degenerative change of the spine and hips. IMPRESSION: NO ACUTE PROCESS. Electronically signed by John Hoyt D.O.. John Hoyt DO - Progress/Reassessment Chief Complaint: General Assessment Plan - Plan Plan: Admit for further management Departure Clinical Impression: Congestive heart failure, Diabetes mellitus, type II, Atrial fibrillation, Acute kidney injury, Chronic kidney disease, stage 3 - Departure Disposition: Still a patient Condition: Stable Print Language: Welsh Referrals: Gagandeep Soliz DO [Primary Care Provider] -
[2020-11-06 12:08] LABS: Hematocrit 32.6 % (42.0-52.0); Mean Cell Volume 90.6 fl (78-100); Mean Corpuscular Hemoglobin 27.8 pg (27-31); Mean Corpuscular Hgb Conc 30.7 g/dl (32-36); Neutrophil # 4.4 K/mm3 (1.3-6.0); Neutrophil % 67.6 % (42-75.0); Platelet Count 124 K/mm3 (150-450); Red Cell Distribution Width 16.2 % (11.5-14.0); White Blood Count 6.5 K/mm3 (4.0-10.5)
[2020-11-06 12:18] LABS: Prothrombin Time (Patient) 26.1 Seconds (9.1-10.7)
[2020-11-06 12:27] LABS: INR 2.63 INR (0.92-1.08); Partial Thrombolplastin Time 32.7 Seconds (24-32)
[2020-11-06 12:30] LABS: ALT 18 U/L (19-67); AST 16 U/L (0-48); Albumin * 3.3 gm/dl (3.4-5.0); Alkaline Phosphatase * 70 U/L (50-170); Amylase * 33 U/L (25-115); Anion Gap 12.7 mmol/L (6.8-13.8); BNP * 2398 pg/mL (5-350); BUN/Creatinine Ratio 27.1 (9.0-21.6); Bilirubin, Total 0.5 mg/dL (0.0-1.1); Blood Urea Nitrogen 74 mg/dL (6-23); Ca. Corrected For Albumin 9.1 mg/dL (8.4-10.2); Calcium * 8.9 mg/dL (7.9-10.9); Carbon Dioxide 29.1 mmol/L (24-32.6); Chloride 103 mmol/L (97-106); Glucose * 118 mg/dL (70-110); Lipase 175 U/L (73-393); Potassium 3.8 mmol/L (3.4-4.6); Sodium 141 mmol/L (132-142); Total Protein 7.3 gm/dL (6.2-8.2); Troponin I Less than 0.017 ng/mL (0.00-0.10)
[2020-11-06] MEDS ORDERED: DIATRIZOATE MEGLUMINE, SODIUM 30 ML BTL ONE (12:57)
[2020-11-06] MEDS ORDERED: DIATRIZOATE MEGLUMINE, SODIUM 30 ML BTL PO ONE (13:00)
[2020-11-06 14:58] LABS: Urine Appearance Clear (CLEAR); Urine Bacteria None Seen; Urine Bilirubin Negative (NEGATIVE); Urine Blood Negative /ul (NEGATIVE); Urine Color Yellow; Urine Ketone Negative (NEGATIVE); Urine Nitrite Negative (NEGATIVE); Urine Protein 15 mg/dL (NEGATIVE); Urine RBC None Seen /hpf (0-5); Urine Urobilinogen Normal (NORMAL); Urine WBC 0-5 /hpf (0-5)
[2020-11-06] MEDS ORDERED: ALBUTEROL SULFATE 200 PUFF INHALER IH PRN (18:47)
[2020-11-06] MEDS ORDERED: FLUTICASONE PROPIONATE 120 SPRAY INHALER NS PRN (18:47)
[2020-11-06] MEDS ORDERED: NORMAL SALINE 1,000 ML IV ONE (18:51)
--- NOTE | 2020-11-06 18:52 | HP ---
Chief Complaint - Chief Complaint Date of Service: 11/06/20 Time of Service: 18:52 Chief Complaint: CARA History of Present Illness: 74-year-old male presented to the hospital today with diffuse abdominal pain and dizziness which started this morning. Rex fine yesterday. States that his blood pressure today was a little lower than normal which he is not used to according to his home blood pressure cuff. States he recently saw his PCP who adjusted his medications recently which is likely what is causing his pressure changes. His lab work in the ER is fairly unremarkable aside from an acute kidney injury with a creatinine that was up to 2.73, baseline is her around 1.7-1.8 normally. Patient does have hypertension and diabetes. He did have a mildly elevated BNP at 2398 which is right around where he is always been. He denies chest pain but has swelling in his legs which is 1-2+ pitting edema that is pleasant he always has-it is up to hid mid edmondson. Patient work-up for his diffuse abdominal pain which included a CT scan of his belly which was unremarkable, chest x-ray which was unremarkable, and an upright abdominal KUB which was unremarkable. His amylase and lipase were negative. His troponin was negative. His UA was negative. Patient was admitted for gentle fluid resuscitation due to his acute kidney injury and likely will be discharged home in the morning as long as his kidneys improved. Otherwise his lab work and vital signs are stable and unremarkable. Patient also has history of fairly good sized pericardial effusion which is currently being followed by the [facility]. He has an appoint with them next week for repeat echocardiogram. His vital signs are stable and his heart rate stable so I do not think he is having decreased perfusion due to this at this time. Medical History (Last Reviewed 11/06/20 @ 11:40 by YAMILE Winkler) Obstructive sleep apnea (Chronic) Onset Date: 09/2017 Mild obstructive sleep apnea. AHI of 7 events per hour. CPAP setting 8cm/H2O. Atrial fibrillation (Chronic) Onset Date: 10/09/17 Bunion (Chronic) Onset Date: 07/29/12 Carotid arterial disease (Chronic) Onset Date: Unknown Diabetes mellitus, type II (Chronic) Onset Date: Unknown Onychomycosis (Acute) Onset Date: 2011 Foot ulcer (Resolved) Onset Date: Unknown Diabetes (Chronic) Onset Date: Unknown Diabetic eye exam Onset Date: 09/11/20 09/11/2020: Dr. Ezra Garcia, [facility]. * Mild background diabetic retinopathy noted in both eyes. 08/09/2018: Dr. Ezra Garcia, [facility]. * Mild background diabetic retinopathy noted in both eyes. Diabetic retinopathy Onset Date: 08/09/18 Influenza vaccination declined Onset Date: ~06/04/18 Will get later this month Pericardial effusion Onset Date: Unknown Heart failure Onset Date: Unknown Hyperlipidemia Onset Date: Unknown Hypertension Onset Date: Unknown Metabolic disorder Onset Date: Unknown Peripheral neuropathy Onset Date: 2011 Carpal tunnel syndrome of right wrist Onset Date: Unknown History of cataract Onset Date: Unknown bilateral Pneumonia Onset Date: Unknown Asbestos exposure Onset Date: Unknown Surgical History: Surgical History (Last Reviewed 11/06/20 @ 11:40 by YAMILE Winkler) History of knee replacement Onset Date: 04/05/20 Right total knee arthroplasty - H/O arthroscopic knee surgery Onset Date: Unknown bilateral, unsure of year History of arthroplasty of knee Onset Date: 06/01/14 left History of carpal tunnel release Onset Date: Unknown right History of cataract removal with insertion of prosthetic lens Onset Date: Unknown bilateral History of colonoscopy Onset Date: 2010 Normal History of endoscopy Onset Date: 02/17/20 Dr. Kyle Breen, [facility] [place]. Nasal endoscopy. Hx of repair of rotator cuff Onset Date: Unknown bilateral Family History: Family History (Last Reviewed 11/06/20 @ 11:40 by YAMILE Winkler) Father Myocardial infarction, Onset Age: 81 Hypertension Mother Hypertension CVA (cerebral vascular accident), Onset Age: 71 Social History: (Last Reviewed 11/06/20 @ 11:40 by YAMILE Winkler) Social History: adopted: No long-term: No Marital status: household members: spouse number of children: 2 number of grandchildren: 3 current occupational status: retired current occupation: retired Highest level of school completed/degree received: high school graduate Service: Yes Service comment: [employer]: [employer] assignments: Spokeable known or potential exposure: other details: possible agent orange exposure Tobacco: Smoking Status: Never smoker Tobacco: How many years used: 22 how long ago did patient quit smoking: age 33 Alcohol: alcohol intake: never Substance Use: substance use type: does not use Dietary Habits: caffeine: Yes caffeine comment: very little Type: tea Exercise: frequency: does not exercise Review Of Systems (GEN) - Review of Systems Generalized/Overall Review: Absent: Weakness, Chills, Fever EENTM: Present: No Symptoms Reported Respiratory: Absent: Cough, Shortness of Breath Cardiac: Present: Edema. Absent: Chest Pain Abdominal: Present: Abdominal Pain - resolved. Absent: Nausea, Vomiting Genitourinary: Present: No Symptoms Reported Musculoskeletal: Present: No Symptoms Reported Neurological: Present: No Symptoms Reported Skin: Present: No Symptoms Reported Endocrine: Present: No Symptoms Reported Immunizations: IMMUNIZATION HX Immunizations Up to Date Yes History of Influenza Vaccine Yes Hx Pneumococcal Vaccination Yes Allergies/Adverse Reactions: Allergies Allergy/AdvReac Type Severity Reaction Status Date / Time oxycodone [From Percocet] AdvReac Mild Nausea Verified 10/22/20 09:31 Home Medications: HOME MEDICATIONS warfarin 5 mg tablet 5 mg PO SUTUWETHFRSA tab 03/27/18 [Last Taken 03/31/20] blood-glucose meter See Dose Instructions .ROUTE .MEDSUPPLY #1 ea 09/18/18 [Last Taken Unknown] CPAP Supplies (Foam Filter, Headgear, Chin Strap, Water Chamber) 0 .ROUTE .MEDSUPPLY #1 ea 11/11/18 [Last Taken Unknown] CPAP Supplies (Full Face Cushion/Pillows, Disposable Filters) 0 .ROUTE .MEDSUPPLY #6 ea 11/11/18 [Last Taken Unknown] CPAP Supplies (Full Face Mask, Tubing) 0 .ROUTE .MEDSUPPLY #1 ea 11/11/18 [Last Taken Unknown] Potassium Chloride [Klor-Con M20] 40 meq PO BID 01/21/19 [Last Taken Unknown] Durable Medical Equipment See Dose Instructions .ROUTE .MEDSUPPLY #1 ea 02/26/19 [Last Taken Unknown] blood sugar diagnostic See Dose Instructions .ROUTE .MEDSUPPLY #100 ea 07/28/19 [Last Taken Unknown] Warfarin Sodium 2.5 mg PO MOFR 12/08/19 [Last Taken Unknown] lancets See Dose Instructions .ROUTE .MEDSUPPLY #100 ea 05/04/20 [Last Taken Unknown] fenofibrate 54 mg tablet 54 mg PO DAILY #30 tab 06/04/20 [Last Taken Unknown] hydralazine 50 mg tablet 50 mg PO BID #60 tab 06/04/20 [Last Taken Unknown] levothyroxine 25 mcg tablet 25 mcg PO DAILY #30 tab 06/04/20 [Last Taken Unknown] simvastatin 20 mg tablet 20 mg PO HS #30 tab 06/04/20 [Last Taken Unknown] gabapentin 400 mg capsule 800 mg PO BID 90 Days #360 cap 06/09/20 [Last Taken Unknown] blood sugar diagnostic See Rx Instructions .ROUTE .MEDSUPPLY #100 ea 08/09/20 [Last Taken Unknown] carvedilol 25 mg tablet 50 mg PO BID #360 tab 08/21/20 [Last Taken Unknown] Clonidine HCl [Catapres] 0.1 mg PO BID 10/18/20 [Last Taken Unknown] Lisinopril/Hydrochlorothiazide [Lisinopril-Hctz 20-12.5 mg Tab] 1 ea PO HS 10/18/20 [Last Taken Unknown] Lisinopril/Hydrochlorothiazide [Lisinopril-Hctz 20-12.5 mg Tab] 2 tab PO DAILY 10/18/20 [Last Taken Unknown] metFORMIN HCL [Metformin HCl ER] 500 mg PO BIDWM 10/18/20 [Last Taken Unknown] Bumetanide 2 mg PO DAILY 11/06/20 [Last Taken Unknown] Exam - Exam Vital Signs: Vital Signs - Last Taken Temp 36.4 C 11/06/20 18:40 Pulse 60 11/06/20 18:40 Resp 18 11/06/20 18:40 BP 144/54 11/06/20 18:40 Pulse Ox 98 11/06/20 18:40 Constitutional: Present: Alert, Oriented x3, Elderly, Morbidly obese ENT Exam: Present: hard of hearing Eye Exam: bilateral eye: normal inspection, EOMI Respiratory: Present: lungs clear, normal breath sounds Cardiovascular/Chest: Present: no murmur, irregularly irregular Peripheral Pulses: dorsalis-pedis (R): 2+, dorsalis-pedis (L): 2+ Abdomen: Present: soft, nontender, nondistended. Absent: guarding, rigidity Extremity: Present: non-tender, lower extremity edema - 2+ pitting to mid edmondson, chronic per patient Skin Exam: Present: normal color, warm/dry Neurologic: Present: alert, normal mood/affect, oriented x 3 Appearance: Present: appropriate appearance, appropriate insight Eye contact: Present: cooperative Thoughts: Present: normal thought pattern, normal mood /affect Diagnostic Studies: Abnormal Lab Results 11/06/20 11/06/20 11/06/20 Range/Units 12:00 12:00 12:00 RBC 3.60 L (4.7-6.0) M/mm3 Hgb 10.0 L (13.5-18.0) gm/dL Hct 32.6 L (42.0-52.0) % MCHC 30.7 L (32-36) g/dl RDW 16.2 H (11.5-14.0) % Plt Count 124 L (150-450) K/mm3 MPV 12.0 H (8-11.3) fl Immature Gran % (Auto) 0.50 H (0.001-0.429) % Lymphocytes % 16.9 L (20-51) % Monocytes % 11.2 H (0.0-9) % Eosinophils % 3.2 H (0.0-3.0) % Lymphocytes # 1.10 L (1.5-3.5) k/mm3 PT 26.1 H (9.1-10.7) Seconds INR (Anticoag Therapy) 2.63 H (0.92-1.08) INR PTT (Jack) 32.7 H (24-32) Seconds BUN 74 H (6-23) mg/dL Creatinine 2.73 H D (0.4-1.4) mg/dL Est GFR (Non-Af Amer) 24 L D (60-130) mL/min BUN/Creatinine Ratio 27.1 H (9.0-21.6) Random Glucose 118 H (70-110) mg/dL ALT 18 L (19-67) U/L B-Natriuretic Peptide 2398 H (5-350) pg/mL Albumin 3.3 L (3.4-5.0) gm/dl Urine Protein (NEGATIVE) mg/dL 11/06/20 Range/Units 14:37 RBC (4.7-6.0) M/mm3 Hgb (13.5-18.0) gm/dL Hct (42.0-52.0) % MCHC (32-36) g/dl RDW (11.5-14.0) % Plt Count (150-450) K/mm3 MPV (8-11.3) fl Immature Gran % (Auto) (0.001-0.429) % Lymphocytes % (20-51) % Monocytes % (0.0-9) % Eosinophils % (0.0-3.0) % Lymphocytes # (1.5-3.5) k/mm3 PT (9.1-10.7) Seconds INR (Anticoag Therapy) (0.92-1.08) INR PTT (Jack) (24-32) Seconds BUN (6-23) mg/dL Creatinine (0.4-1.4) mg/dL Est GFR (Non-Af Amer) (60-130) mL/min BUN/Creatinine Ratio (9.0-21.6) Random Glucose (70-110) mg/dL ALT (19-67) U/L B-Natriuretic Peptide (5-350) pg/mL Albumin (3.4-5.0) gm/dl Urine Protein 15 H (NEGATIVE) mg/dL Laboratory Results WBC 6.5 K/mm3 (4.0-10.5) 11/06/20 12:00 RBC 3.60 M/mm3 (4.7-6.0) L 11/06/20 12:00 Hgb 10.0 gm/dL (13.5-18.0) L 11/06/20 12:00 Hct 32.6 % (42.0-52.0) L 11/06/20 12:00 MCV 90.6 fl (78-100) 11/06/20 12:00 MCH 27.8 pg (27-31) 11/06/20 12:00 MCHC 30.7 g/dl (32-36) L 11/06/20 12:00 RDW 16.2 % (11.5-14.0) H 11/06/20 12:00 Plt Count 124 K/mm3 (150-450) L 11/06/20 12:00 MPV 12.0 fl (8-11.3) H 11/06/20 12:00 Immature Gran % (Auto) 0.50 % (0.001-0.429) H 11/06/20 12:00 Immature Gran # (Auto) 0.03 K/mm3 (0.000-0.0310) 11/06/20 12:00 Neutrophils % 67.6 % (42-75.0) 11/06/20 12:00 Lymphocytes % 16.9 % (20-51) L 11/06/20 12:00 Monocytes % 11.2 % (0.0-9) H 11/06/20 12:00 Eosinophils % 3.2 % (0.0-3.0) H 11/06/20 12:00 Basophils % 0.6 % (0.0-1.0) 11/06/20 12:00 Nucleated RBC % 0.0 k/mm3 (0-1) 11/06/20 12:00 Neutrophils # 4.4 K/mm3 (1.3-6.0) 11/06/20 12:00 Lymphocytes # 1.10 k/mm3 (1.5-3.5) L 11/06/20 12:00 Monocytes # 0.7 k/mm3 (0.0-1.0) 11/06/20 12:00 Eosinophils # 0.2 k/mm3 (0.0-0.7) 11/06/20 12:00 Absolute Basophils 0.0 k/mm3 (0.0-0.1) 11/06/20 12:00 PT 26.1 Seconds (9.1-10.7) H 11/06/20 12:00 INR (Anticoag Therapy) 2.63 INR (0.92-1.08) H 11/06/20 12:00 PTT ([place]) 32.7 Seconds (24-32) H 11/06/20 12:00 Sodium 141 mmol/L (132-142) 11/06/20 12:00 Plasma Sodium 141 mmol/L (130-142) 11/06/20 12:00 Potassium 3.8 mmol/L (3.4-4.6) 11/06/20 12:00 Chloride 103 mmol/L (97-106) 11/06/20 12:00 Carbon Dioxide 29.1 mmol/L (24-32.6) 11/06/20 12:00 Anion Gap 12.7 mmol/L (6.8-13.8) 11/06/20 12:00 BUN 74 mg/dL (6-23) H 11/06/20 12:00 Creatinine 2.73 mg/dL (0.4-1.4) H D 11/06/20 12:00 Est GFR (Non-Af Amer) 24 mL/min (60-130) L D 11/06/20 12:00 BUN/Creatinine Ratio 27.1 (9.0-21.6) H 11/06/20 12:00 Random Glucose 118 mg/dL (70-110) H 11/06/20 12:00 Calcium 8.9 mg/dL (7.9-10.9) 11/06/20 12:00 Calcium Adj for Albumin 9.1 mg/dL (8.4-10.2) 11/06/20 12:00 Total Bilirubin 0.5 mg/dL (0.0-1.1) 11/06/20 12:00 AST 16 U/L (0-48) 11/06/20 12:00 ALT 18 U/L (19-67) L 11/06/20 12:00 Alkaline Phosphatase 70 U/L (50-170) 11/06/20 12:00 Troponin I Less than 0.017 ng/mL (0.00-0.10) 11/06/20 12:00 B-Natriuretic Peptide 2398 pg/mL (5-350) H 11/06/20 12:00 Total Protein 7.3 gm/dL (6.2-8.2) 11/06/20 12:00 Albumin 3.3 gm/dl (3.4-5.0) L 11/06/20 12:00 Amylase 33 U/L (25-115) 11/06/20 12:00 Lipase 175 U/L (73-393) 11/06/20 12:00 Urine Color Yellow 11/06/20 14:37 Urine Appearance Clear (CLEAR) 11/06/20 14:37 Urine pH 7.0 pH (5.0-7.0) 11/06/20 14:37 Ur Specific [place] 1.010 SP.GR. (1.005-1.030) 11/06/20 14:37 Urine Protein 15 mg/dL (NEGATIVE) H 11/06/20 14:37 Urine Glucose (UA) Negative mg/dL (NEGATIVE) 11/06/20 14:37 Urine Ketones Negative mg/dL (NEGATIVE) 11/06/20 14:37 Urine Blood Negative /ul (NEGATIVE) 11/06/20 14:37 Urine Nitrate Negative (NEGATIVE) 11/06/20 14:37 Urine Bilirubin Negative mg/dl (NEGATIVE) 11/06/20 14:37 Urine Urobilinogen Normal EU/dl (NORMAL) 11/06/20 14:37 Ur Leukocyte Esterase Negative /ul (NEGATIVE) 11/06/20 14:37 Urine RBC None seen /hpf (0-5) 11/06/20 14:37 Urine WBC 0-5 /hpf (0-5) 11/06/20 14:37 Ur Epithelial Cells 0-5 /hpf (0-5) 11/06/20 14:37 Urine Bacteria None seen (NONE) 11/06/20 14:37 Urine Culture Comments No culture indicated 11/06/20 14:37 SARS-CoV-2 (PCR) Not detected (NotDetected) 11/06/20 15:45 Assessment/Plan - Narrative Narrative: Patient is placed in observation to be monitored for ischemia. Patient has acute kidney injury with a creatinine of 2.73. Baseline is closer to 1.7-1.8. GFR also significant lower than what is his normal. Gentle fluids throughout the night. Chronic medications restarted. INR is appropriate for his A. fib. Patient is asymptomatic otherwise at this time and feels well. Repeat BMP in the morning. Diabetic diet ordered. SCDs abnormal in bed. Nurse to call questions or concerns. - Assessment/Plan (1) Acute kidney injury Problem: Acute (2) Chronic kidney disease, stage 3 Problem: Chronic (3) Atrial fibrillation Problem: Chronic Qualifiers: (4) Morbid obesity Problem: Acute (5) Diabetes mellitus, type II Problem: Chronic Qualifiers: (6) Hypertension Problem: Chronic Qualifiers:
[2020-11-06 19:10] LABS: Anion Gap 13.5 mmol/L (6.8-13.8); BUN/Creatinine Ratio 27.1 (9.0-21.6); Calcium * 8.8 mg/dL (7.9-10.9); Carbon Dioxide 29.3 mmol/L (24-32.6); Estimated Creat Clear 26.8; Potassium 3.8 mmol/L (3.4-4.6)
[2020-11-06] MEDS: GABAPENTIN 400 MG CAPSULE PO SCH (20:45)
[2020-11-06] MEDS: CARVEDILOL 25 MG TABLET PO SCH (20:46)
[2020-11-06] MEDS: CLONIDINE HCL 0.1 MG TABLET PO SCH (20:46)
[2020-11-06] MEDS: hydrALAZINE HCL 50 MG TABLET PO SCH (20:46)
[2020-11-06] MEDS ORDERED: LISINOPRIL 20 MG TABLET PO SCH (21:00)
[2020-11-06] MEDS ORDERED: SIMVASTATIN 20 MG TABLET PO SCH (21:00)
[2020-11-06] MEDS ORDERED: NON-FORMULARY 1 DOSE DOSE (Lisinopril/Hydrochlorothiazide [Lisinopril-Hctz 20-12.5 Mg Tab] PO SCH (21:00)
[2020-11-06] MEDS ORDERED: HYDROCHLOROTHIAZIDE 12.5 MG CAPSULE PO SCH (21:00)
[2020-11-07] MEDS ORDERED: LEVOTHYROXINE SODIUM 25 MCG TABLET PO SCH (07:00)
[2020-11-07 07:02] LABS: BUN/Creatinine Ratio 28.9 (9.0-21.6); Calcium * 8.6 mg/dL (7.9-10.9); Carbon Dioxide 28.7 mmol/L (24-32.6); Estimated Creat Clear 31.2; Potassium 3.7 mmol/L (3.4-4.6)
[2020-11-07] MEDS: hydrALAZINE HCL 50 MG TABLET PO SCH (08:02)
[2020-11-07] MEDS: GABAPENTIN 400 MG CAPSULE PO SCH (08:03)
[2020-11-07] MEDS: CARVEDILOL 25 MG TABLET PO SCH (08:03)
[2020-11-07] MEDS: CLONIDINE HCL 0.1 MG TABLET PO SCH (08:03)
--- NOTE | 2020-11-07 13:10 | DS ---
(1) Acute kidney injury Problem: Acute (2) Chronic kidney disease, stage 3 Problem: Chronic (3) Atrial fibrillation Problem: Chronic Qualifiers: (4) Morbid obesity Problem: Acute (5) Diabetes mellitus, type II Problem: Chronic Qualifiers: (6) Hypertension Problem: Chronic Qualifiers: (7) Pericardial effusion without cardiac tamponade Problem: Acute Date of Discharge:: 11/07/20 Hospital Course: Patient was admitted due to an acute kidney injury. Patient was recently started on Bumex which is likely the cause of this. Patient has not been repositioning normally does due to abdominal pain that he was having when he came in. This has resolved and is back to drinking fine and should continue to be well as long as he continues to hydrate. Spent 30 minutes discussing his acute kidney injury as well as reviewing his medications with patient. He is to continue the Bumex with understanding that he needs to increase his fluid intake to hopefully prevent his kidneys from dehydration again. His creatinine when he came in was 2.73 and trended down to 2.35 upon discharge. She continues to do well as long as he continues to drink fluid which we discussed again in detail. Patient has an appointment in 2 days with cardiology here for repeat echocardiogram to monitor his pericardial effusion. Patient has had this for 3 years and is stable. He is cardiovascularly intact and has no signs of tamponade. Vital signs been stable and he is perfusing well. Will order repeat BMP for Sunday morning when he comes in to have his echocardiogram with Dr. Scott and will send the results to his PCP Dr. Soliz. While here his vital signs have been stable though he is slightly bradycardic in the upper 50s during his time here. His blood pressure is fine and is satting well on room air. He feels well and is ready be discharged home. Patient may need to have his Bumex dose cut in half but I will allow his woodworking shop hand and his PCP to make this decision. Again just recommended patient increase his water intake which he states his understanding to and can do. Patient is on Coumadin for his atrial fibrillation, INR was appropriate while here. 1 hour time spent with the patient today including his patient encounter, his discharge summary, his orders, and his follow-up. Procedures Performed: none Results and Findings: Lab Pending Results 11/06/20 12:00: WBC 6.5, RBC 3.60 L, Hgb 10.0 L, Hct 32.6 L, MCV 90.6, MCH 27.8, MCHC 30.7 L, RDW 16.2 H, Plt Count 124 L, MPV 12.0 H, Immature Gran % (Auto) 0.5 0 H, Immature Gran # (Auto) 0.03, Neutrophils % 67.6, Lymphocytes % 16.9 L, Monocytes % 11.2 H, Eosinophils % 3.2 H, Basophils % 0.6, Nucleated RBC % 0.0, Neutrophils # 4.4, Lymphocytes # 1.10 L, Monocytes # 0.7, Eosinophils # 0.2, Absolute Basophils 0.0 11/06/20 12:00: PT 26.1 H, INR (Anticoag Therapy) 2.63 H, PTT ([place]) 32.7 H 11/06/20 12:00: Sodium 141, Plasma Sodium 141, Potassium 3.8, Chloride 103, Carbon Dioxide 29.1, Anion Gap 12.7, BUN 74 H, Creatinine 2.73 H D, Est GFR (Non-Af Amer) 24 L D, BUN/Creatinine Ratio 27.1 H, Random Glucose 118 H, Calcium 8.9, Calcium Adj for Albumin 9.1, Total Bilirubin 0.5, AST 16, ALT 18 L, Alkaline Phosphatase 70, Troponin I Less than 0.017, B-Natriuretic Peptide 2398 H, Total Protein 7.3, Albumin 3.3 L, Amylase 33, Lipase 175 11/06/20 14:37: Urine Color Yellow, Urine Appearance Clear, Urine pH 7.0, Ur Specific [place] 1.010, Urine Protein 15 H, Urine Glucose (UA) Negative, Urine Ketones Negative, Urine Blood Negative, Urine Nitrate Negative, Urine Bilirubin Negative, Urine Urobilinogen Normal, Ur Leukocyte Esterase Negative, Urine RBC None seen, Urine WBC 0-5, Ur Epithelial Cells 0-5, Urine Bacteria None seen, Urine Culture Comments No culture indicated 11/06/20 15:45: SARS-CoV-2 (PCR) Not detected 11/06/20 18:58: Sodium 140, Plasma Sodium 141, Potassium 3.8, Chloride 101, Carbon Dioxide 29.3, Anion Gap 13.5, BUN 74 H, Creatinine 2.73 H, Est GFR (Non- Af Amer) 24 L, BUN/Creatinine Ratio 27.1 H, Random Glucose 176 H D, Calcium 8.8 11/07/20 06:15: Sodium 145 H, Plasma Sodium 145 H, Potassium 3.7, Chloride 108 H, Carbon Dioxide 28.7, Anion Gap 12.0, BUN 68 H, Creatinine 2.35 H, Est GFR (Non-Af Amer) 29 L D, BUN/Creatinine Ratio 28.9 H, Random Glucose 124 H, Calcium 8.6 Discharge Location: Home Disposition: Home self-care Condition: Stable Discharge Activity: Activity as tolerated Discharge Diet: Low salt Referrals: Gagandeep Soliz DO [Primary Care Provider] - One Week (3 to 5 days) Complete Home Medications List: Complete Home Medication List: warfarin 5 mg tablet 5 mg PO SUTUWETHFRSA tab 03/27/18 blood-glucose meter See Dose Instructions .ROUTE .MEDSUPPLY #1 ea 09/18/18 CPAP Supplies (Foam Filter, Headgear, Chin Strap, Water Chamber) 0 .ROUTE .MEDSUPPLY #1 ea 11/11/18 CPAP Supplies (Full Face Cushion/Pillows, Disposable Filters) 0 .ROUTE .MEDSUPPLY #6 ea 11/11/18 CPAP Supplies (Full Face Mask, Tubing) 0 .ROUTE .MEDSUPPLY #1 ea 11/11/18 Potassium Chloride [Klor-Con M20] 40 meq PO BID 01/21/19 Durable Medical Equipment See Dose Instructions .ROUTE .MEDSUPPLY #1 ea 02/26/19 blood sugar diagnostic See Dose Instructions .ROUTE .MEDSUPPLY #100 ea 07/28/19 Warfarin Sodium 2.5 mg PO MOFR 12/08/19 lancets See Dose Instructions .ROUTE .MEDSUPPLY #100 ea 05/04/20 fenofibrate 54 mg tablet 54 mg PO DAILY #30 tab 06/04/20 hydralazine 50 mg tablet 50 mg PO BID #60 tab 06/04/20 levothyroxine 25 mcg tablet 25 mcg PO DAILY #30 tab 06/04/20 simvastatin 20 mg tablet 20 mg PO HS #30 tab 06/04/20 gabapentin 400 mg capsule 800 mg PO BID 90 Days #360 cap 06/09/20 blood sugar diagnostic See Rx Instructions .ROUTE .MEDSUPPLY #100 ea 08/09/20 carvedilol 25 mg tablet 50 mg PO BID #360 tab 08/21/20 Clonidine HCl [Catapres] 0.1 mg PO BID 10/18/20 Lisinopril/Hydrochlorothiazide [Lisinopril-Hctz 20-12.5 mg Tab] 1 ea PO HS 10/18/20 Lisinopril/Hydrochlorothiazide [Lisinopril-Hctz 20-12.5 mg Tab] 2 tab PO DAILY 10/18/20 metFORMIN HCL [Metformin HCl ER] 500 mg PO BIDWM 10/18/20 Bumetanide 2 mg PO DAILY 11/06/20 Forms: Patient Portal Registration
[2020-11-07 14:49] VITALS: BP 115/72
[2020-11-07] MEDS ORDERED: WARFARIN SODIUM 5 MG TABLET PO SCH (17:00)
[2020-11-08] MEDS ORDERED: WARFARIN SODIUM 2.5 MG TABLET PO SCH (17:00)
== END 2020-11-07 14:10 | disposition home or self-care (01) ==
LOC: ER 10:57 → MS 16:34 → INTOOBSV 16:34 → MS 17:15
PROVIDERS: ADMIT Family Medicine; ATTEND Family Medicine